=== PATIENT | female | born 1955 | race Caucasian/White ===

== ENCOUNTER 2020-09-18 08:58 | Outpatient (REF) | payer MEDICARE, SELFPAY ==
[2020-09-18 11:24] LABS: MANUAL DIFF FLAG NO
[2020-09-18 11:31] LABS: Basophils Absolute Auto 0.1 X10*3/uL (0.0-0.2); Basophils Percent Auto 0.9 % (0-2); Eosinophils Absolute Auto 0.1 X10*3/uL (0.0-0.4); Eosinophils Percent Auto 2.1 % (0-4); Hematocrit 43.4 % (37-47); Hemoglobin 13.7 g/dl (12.0-16.0); Imm Gran Abs Auto 0.02 X10*3/uL (0.00-0.03); Imm Gran Pct Auto 0.4 % (0.0-0.4); Lymphocytes Percent Auto 37.1 % (20-40); Mean Corpuscular HGB Conc 31.6 g/dl (31.0-35.0); Mean Corpuscular Volume 91.8 fL (80-98); Mean Platelet Volume 9.7 fL (9.4-12.3); Monocytes Absolute Auto 0.4 X10*3/uL (0.1-1.2); Neutrophils Absolute Auto 2.8 X10*3/uL (2.0-8.3); Neutrophils Percent Auto 52.5 % (45-73); Platelet Count 379 X10*3/uL (160-400); Red Blood Count 4.73 X10*6/uL (4.20-5.50); Red Cell Distribution Width 14.5 % (11.0-16.0); White Blood Count 5.3 X10*3/uL (4.8-10.8)
[2020-09-18 11:32] LABS: Glucose Urine UA NEG (NEG); Leukocyte Esterase Urine NEG (NEG); Nitrite Urine NEG (NEG); PH 6.5 (5.0-8.0); Urine Blood NEG (NEG); Urine Ketones NEG (NEG); Urine Protein NEG (NEG-TRACE)
[2020-09-18 11:34] LABS: Appearance Urine CLEAR; Color Urine YELLOW
[2020-09-18 12:10] LABS: Alanine Aminotransferase 20 U/L (0-31); Albumin Level 4.4 g/dL (3.5-5.0); Alkaline Phosphatase 68 U/L (39-117); Anion Gap 13 (12-20); Aspartate Amino Transferase 22 U/L (5-31); Bilirubin Total 0.4 mg/dL (0.0-1.0); Blood Urea Nitrogen 10 mg/dL (9-16); Calcium 8.9 mg/dL (8.4-10.2); Carbon Dioxide 30 mmol/L (22-29); Chloride 104 mmol/L (96-108); Cholesterol 214 mg/dL; Estimated Glomerular Filt Rate > 60; Glucose Fasting 91 mg/dL (60-99); HDL Cholesterol 56 mg/dL; LDL Cholesterol Calculated 140 mg/dl; Potassium 4.1 mmol/l (3.3-5.1); Sodium 143 mmol/L (135-145); Total Protein 7.5 g/dL (6.5-8.0); Triglycerides 90 mg/dL
[2020-09-18 12:31] LABS: Vitamin D 25-OH Total 32.9 ng/mL (>30)
== END 2020-09-18 08:59 | disposition home or self-care (01) ==
LOC: HO.HMGCLDS 08:58
PROVIDERS: PCP Internal Medicine; Visit Provider Internal Medicine
DX: Z00.00 Encounter for general adult medical examination without abnormal findings (principal)
CPT/HCPCS: 36415; 80053; 80061; 81003; 82306; 85025

== ENCOUNTER 2020-10-08 13:44 | Outpatient (REF) | payer MEDICARE, SELFPAY ==
--- NOTE | 2020-10-08 13:48 | MM_ITS ---
EXAMINATION: MM SCREENING DIGITAL BREAST TOMOSYNTHESIS, BILATERAL CLINICAL INFORMATION: Screening. Asymptomatic. The lifetime risk of breast cancer based on the Tyrer-Cuzick Model is 5%. COMPARISON: Mammography: 04/02/2019, 03/20/2018, 02/14/2017 TECHNIQUE: Digital breast tomosynthesis is performed in both the craniocaudal and mediolateral oblique views along with computer-aided detection (CAD). Synthesized 2D images are generated from the tomosynthesis. FINDINGS: There are scattered areas of fibroglandular density (ACR BI-RADS breast composition Category b). There are no significant masses, abnormal calcifications, or other abnormalities. Parenchymal pattern is similar to prior exams. There is no developing density. No significant changes. MM/MM tomosynthesis screening BI IMPRESSION: No mammographic evidence of malignancy. ASSESSMENT: BI-RADS 1: Negative RECOMMENDATION: Routine annual mammography screening. This patient's information was entered into a reminder system with a target due date for their next mammogram.
== END 2020-10-08 13:45 | disposition home or self-care (01) ==
LOC: HO.MAMMO 13:44
PROVIDERS: PCP Internal Medicine; Visit Provider Internal Medicine
DX: Z12.31 Encounter for screening mammogram for malignant neoplasm of breast (principal)
CPT/HCPCS: 77063; 77067

== ENCOUNTER 2021-02-13 09:06 | Outpatient (REF) | payer MEDICARE, SELFPAY ==
[2021-02-13 17:56] LABS: Cholesterol 216 mg/dL; HDL Cholesterol 52 mg/dL; LDL Cholesterol Calculated 135 mg/dl; Triglycerides 148 mg/dL
== END 2021-02-13 09:07 | disposition home or self-care (01) ==
LOC: HO.HMGCLDS 09:06
PROVIDERS: PCP Internal Medicine; Visit Provider Internal Medicine
DX: E78.00 Pure hypercholesterolemia, unspecified (principal)
CPT/HCPCS: 36415; 80061

== ENCOUNTER 2021-06-21 12:41 | Outpatient (REF) | payer MEDICARE, SELFPAY ==
--- NOTE | 2021-06-21 14:49 | MHC.AU.AHA ---
Adult Audiological Evaluation Date of Visit: 06/21/21 Tempering Kiln Tender Used: Not Applicable Reason for Appointment: Audiologic re-evaluation due to increasing difficulties understanding speech. Previous Hearing Test Results: 10/21/2018 [facility] Mild dropping to profound sensorineural hearing loss bilaterally Medical History: Medication List: Not available for review Hearing Instrument History- Right Ear: Die Designer Apprentice: Phonak Model: Bolero V 70-SP BTE Serial Number: [id number] Battery Size: 13 Repair Warranty: Dispensed By: [facility] Date of Fittin02/18/2016 Hearing Instrument History- Left Ear: Die Designer Apprentice: Phonak Model: Bolero V 70-SP BTE Serial Number: [id number] Battery Size: 13 Warranty: Dispensed By: [facility] Date of Fittin02/18/2016 Otoscopy: Right Ear: Unremarkable Left Ear: Unremarkable Tympanometry: Tympanometry not performed today as all previous test results have indicated normal middle ear function bilaterally Hearing Evaluation: Transducer(s) Used: Insert Earphones Method: Conventional Audiometry Stimuli Used: Pure Tones Right Ear: Description of Hearing: Mild dropping to profound sensorineural hearing loss. Right ear thresholds are slightly poorer than the left ear Left Ear: Description of Hearing: Mild dropping to profound sensorineural hearing loss Speech Recognition Threshold (SRT): Method Used: Monitored Live Voice Stimuli Used: Spondee Words Right Ear: 50 dB HL Left Ear: 40 dB HL Word Discrimination: Word Lists Used: NU-6 Right Ear: Live Monitored Speech - 68% at 85 dB HL Recorded Speech - 36% at 85 dB HL Left Ear: Live Monitored Speech - 76% at 80 dB HL Recorded Speech - 32% at 80 dB HL Most Comfortable Level (MCL): Right Ear: 85 dB HL Left Ear: 80 dB HL Comparison: Compared to the most recent evaluation: Hearing is stable. Interpretation of Results: Results indicate Diane's speech discrimination ability was much better using Live Monitored Speech and demonstrates clear and slower speech is very important for improved speech understanding. Recommendations: Audiological re-evaluation in one year. Will send a reminder card. Hearing aid maintenance performed today. Hearing aid(s) reprogrammed with updated test results. Took impression of the right ear without complication for a new earmold. Will schedule appointment when earmold is received. Diagnosis: Primary Diagnosis: H90.3 Bilateral Sensorineural Hearing Loss Services Performed: Comprehensive Audiological Evaluation (CPT 18939) Signature: Provider: MAZIN PalenciaA
== END 2021-06-21 12:42 | disposition home or self-care (01) ==
LOC: HO.SH 12:41
PROVIDERS: Visit Provider Internal Medicine
DX: H90.3 Sensorineural hearing loss, bilateral (principal)
CPT/HCPCS: 92557

== ENCOUNTER 2021-07-25 12:27 | Outpatient (REF) | payer SELFPAY ==
--- NOTE | 2021-07-25 14:43 | MHC.AU.HFU ---
Hearing Instrument Follow-Up- Binaural Date of Visit: 07/25/21 Right Ear: Business Associate: Phonak Model: Bolero V 70-SP BTE Serial Number: [id number] Repair Warranty: Battery Size: 13 Color: Mishel Red Tubing: Single bend with FOOD CONCESSION MANAGER #4 Type of Mold: Microsonic Skeleton Dispensed By: [facility] Date of Fittin02/18/2016 Left Ear: Business Associate: Phonak Model: Bolero V 70-SP BTE Serial Number: [id number] Repair Warranty: Battery Size: 13 Color: Mishel Red Tubing: Single Bend with FOOD CONCESSION MANAGER #4 Type of Mold: Microsonic Skeleton Dispensed By: [facility] Date of Fittin02/18/2016 Follow-Up Summary: Fit the new right earmold. Patient reports a snugger fit compared to the left mold, but seems comfortable while in office. Patient is interested in trying new Phonak aids and had several questions. Recommendations: Patient will e-mail if fit of earmold is a problem. She will also email when ready to try new aids. PLAN TO FIT WITH DEMO TRIAL NAYA (I know the UP model will over amplify but we do not have an SP model in office) WILL FIRST SET UP LEVEL 70 AND TRY FOR 1-2 WEEKS, THEN TRY LEVEL 90 BEFORE PATIENT DECIDES TO ORDER THE NAYA SP MODEL. Diagnosis Code(s): Primary Diagnosis: H90.3 Bilateral Sensorineural Hearing Loss Services Performed: Earmold (Quantity): 1 Signature: Provider: Colleen Wyatt, [facility]
== END 2021-07-25 12:28 | disposition home or self-care (01) ==
LOC: HO.HAP 12:27
PROVIDERS: Visit Provider Internal Medicine
DX: Z46.1 Encounter for fitting and adjustment of hearing aid (principal); H90.3 Sensorineural hearing loss, bilateral
CPT/HCPCS: V5264

== ENCOUNTER 2021-09-16 07:54 | Outpatient (REF) | payer MEDICARE, SELFPAY ==
[2021-09-16 11:24] LABS: MANUAL DIFF FLAG NO
[2021-09-16 11:42] LABS: Appearance Urine CLEAR; Color Urine STRAW; Glucose Urine UA NEG (NEG); Leukocyte Esterase Urine NEG (NEG); Nitrite Urine NEG (NEG); Urine Blood NEG (NEG); Urine Ketones NEG (NEG); Urine Protein NEG (NEG-TRACE)
[2021-09-16 11:43] LABS: Basophils Absolute Auto 0.1 X10*3/uL (0.0-0.2); Basophils Percent Auto 0.9 % (0-2); Eosinophils Absolute Auto 0.1 X10*3/uL (0.0-0.4); Eosinophils Percent Auto 1.6 % (0-4); Hematocrit 42.1 % (37.0-47.0); Hemoglobin 13.4 g/dl (12.0-16.0); Imm Gran Abs Auto 0.02 X10*3/uL (0.00-0.03); Imm Gran Pct Auto 0.4 % (0.0-0.4); Lymphocytes Absolute Auto 1.8 X10*3/uL (1.2-4.9); Lymphocytes Percent Auto 31.4 % (20-40); Mean Corpuscular HGB Conc 31.8 g/dl (31.0-35.0); Mean Corpuscular Hemoglobin 29.1 pg (27.0-33.0); Mean Corpuscular Volume 91.5 fL (80.0-98.0); Mean Platelet Volume 10.1 fL (9.4-12.3); Monocytes Absolute Auto 0.4 X10*3/uL (0.1-1.2); Monocytes Percent Auto 6.7 % (2-11); Neutrophils Absolute Auto 3.3 x10*3/uL (2.0-8.3); Platelet Count 372 X10*3/uL (160-400); Red Cell Distribution Width 13.7 % (11.0-16.0); White Blood Count 5.6 X10*3/uL (4.8-10.8)
[2021-09-16 12:06] LABS: Alanine Aminotransferase 21 U/L (0-31); Albumin Level 4.1 g/dL (3.5-5.0); Alkaline Phosphatase 71 U/L (39-117); Anion Gap 12 (12-20); Aspartate Amino Transferase 23 U/L (5-31); Bilirubin Total 0.3 mg/dL (0.0-1.0); Blood Urea Nitrogen 8 mg/dL (9-16); Calcium 8.8 mg/dL (8.4-10.2); Carbon Dioxide 28 mmol/L (22-29); Chloride 106 mmol/L (96-108); Cholesterol 211 mg/dL; Estimated Glomerular Filt Rate > 60; Glucose Fasting 96 mg/dL (60-99); HDL Cholesterol 51 mg/dL; LDL Cholesterol Calculated 141 mg/dl; Potassium 4.2 mmol/L (3.3-5.1); Sodium 142 mmol/L (135-145); Total Protein 7.1 g/dL (6.5-8.0); Triglycerides 99 mg/dL
== END 2021-09-16 07:55 | disposition home or self-care (01) ==
LOC: HO.HMGCLDS 07:54
PROVIDERS: PCP Internal Medicine; Visit Provider Internal Medicine
DX: E78.00 Pure hypercholesterolemia, unspecified (principal); J45.909 Unspecified asthma, uncomplicated; R53.83 Other fatigue
CPT/HCPCS: 36415; 80053; 80061; 81003; 85025

== ENCOUNTER 2021-10-09 14:06 | Outpatient (REF) | payer MEDICARE, SELFPAY ==
--- NOTE | ~2021-10-09 | MM_ITS ---
EXAMINATION: MM SCREENING DIGITAL BREAST TOMOSYNTHESIS, BILATERAL CLINICAL INFORMATION: Screening. Asymptomatic. The lifetime risk of breast cancer based on the Tyrer-Cuzick Model is 4%. COMPARISON: Mammography: 10/08/2020, 04/02/2019, 03/20/2018, 02/14/2017, 01/26/2016 TECHNIQUE: Digital breast tomosynthesis is performed in both the craniocaudal and mediolateral oblique views along with computer-aided detection (CAD). Synthesized 2D images are generated from the tomosynthesis. FINDINGS: There are scattered areas of fibroglandular density (ACR BI-RADS breast composition Category b). There are no significant masses, abnormal calcifications, or other abnormalities. Scattered bilateral parenchymal asymmetries are again noted with minor shifting fibroglandular densities from year to year. No developing density. No architectural abnormality. No significant changes. MM/MM tomosynthesis screening BI IMPRESSION: No mammographic evidence of malignancy. ASSESSMENT: BI-RADS 2: Benign RECOMMENDATION: Routine annual mammography screening. This patient's information was entered into a reminder system with a target due date for their next mammogram.
== END 2021-10-09 14:07 | disposition home or self-care (01) ==
LOC: HO.MAMMO 14:06
PROVIDERS: Visit Provider Internal Medicine
DX: Z12.31 Encounter for screening mammogram for malignant neoplasm of breast (principal)
CPT/HCPCS: 77063; 77067

== ENCOUNTER 2021-12-17 08:36 | Outpatient (REF) | payer MEDICARE, SELFPAY ==
--- NOTE | ~2021-12-17 | MM_ITS ---
EXAMINATION: BONE DENSITOMETRY CLINICAL INDICATION: Menopausal. COMPARISON: Baseline BD dated 10/18/2009. TECHNIQUE: Using a Launchpilots DXA System (software version: 13.1) manufactured by [employer], dual-energy x-ray absorptiometry was performed of the lumbar spine and left hip. The images are of good technical quality. Summary results are attached. FINDINGS: AP SPINE L1-L2 (excluding L3 and L4): The data of L1-L4 has been changed to exclude the L3 and L4 vertebral bodies, because mild degenerative changes at these levels may cause overestimation of lumbar spine density. Current: BMD 1.072 g/cm2, Z-score 1.3, T-score -0.8, normal, 7.7% decrease from baseline (<5% change is not significant). Baseline: BMD 1.162 g/cm2. LEFT FEMUR, NECK: Current: BMD 0.694 g/cm2, Z-score -0.6, T-score -2.5, osteoporosis. Baseline: BMD 0.859 g/cm2. LEFT FEMUR, TOTAL: Current: BMD 0.739 g/cm2, Z-score -0.4, T-score -2.1, osteopenia, 17.3% decrease from baseline (<5% change is not significant). Baseline: BMD 0.894 g/cm2. IDENTIFIED RISK FACTORS: Menopause, family history (parental hip fracture), unilateral oophorectomy. HISTORY OF FRACTURE: None listed. MEDICATIONS: Calcium supplements or multivitamin, vitamin D. MM/XR DEXA axial skeleton IMPRESSION: 1. DIAGNOSIS: Osteoporosis based on the lowest T-score value of -2.5 in the femoral neck applying World Health Organization criteria. 2. 10-YEAR FRACTURE RISK PREDICTION, FRAX: According to the guidelines, FRAX calculation should only be performed on patients in the osteopenia bone density category. Therefore, FRAX was not performed on this patient. 3. Treatment Recommendations: NOF guidelines recommend consideration for treatment in postmenopausal women and men age 50 and older presenting with the following: -A hip or vertebral (clinical or morphometric) fracture. -T-score less than or equal to -2.5 at the femoral neck or spine after appropriate evaluation to exclude secondary causes. -Low bone mass at the hip or spine and a 10-year fracture probability by FRAX of greater than or equal to 3% for hip fracture or greater than or equal to 20% for major osteoporotic fracture based on the [place] adapted WHO algorithm. 4. Other Recommendations: All treatment decisions require clinical judgment and consideration of individual patient factors, including patient preferences, comorbidities, previous drug use, risk factors not captured in the FRAX model (e.g. frailty, falls, vitamin D deficiency, increased bone turnover, interval significant decline in bone density) and possible under or overestimation of fracture risk by FRAX. Additional medical evaluation for secondary cause of low bone mineral density may be appropriate. FUTURE SCAN RECOMMENDATION: People with diagnosed cases of osteoporosis or at high risk for fracture should have regular bone mineral density tests. For patients eligible for Medicare, routine testing is allowed once every 2 years. The testing frequency can be increased to one year for patients who have rapidly progressing disease, those who are receiving or discontinuing medical therapy to restore bone mass, or have additional risk factors.
== END 2021-12-17 08:37 | disposition home or self-care (01) ==
LOC: HO.MAMMO 08:36
PROVIDERS: Visit Provider Internal Medicine
DX: Z13.820 Encounter for screening for osteoporosis (principal); Z78.0 Asymptomatic menopausal state; M81.0 Age-related osteoporosis without current pathological fracture; Z79.899 Other long term (current) drug therapy
CPT/HCPCS: 77080

== ENCOUNTER 2022-02-27 08:42 | Outpatient (REF) | payer MEDICARE, SELFPAY ==
[2022-02-27 11:32] LABS: Cholesterol 209 mg/dL; HDL Cholesterol 45 mg/dL; LDL Cholesterol Calculated 140 mg/dl; Triglycerides 122 mg/dL
== END 2022-02-27 08:43 | disposition home or self-care (01) ==
LOC: HO.HMGCLDS 08:42
PROVIDERS: Visit Provider Internal Medicine
DX: E78.00 Pure hypercholesterolemia, unspecified (principal)
CPT/HCPCS: 36415; 80061

== ENCOUNTER 2022-06-12 06:53 | Outpatient (REF) | payer MEDICARE, SELFPAY ==
[2022-06-12 11:39] LABS: Cholesterol 222 mg/dL; HDL Cholesterol 56 mg/dL; LDL Cholesterol Calculated 146 mg/dl; Triglycerides 101 mg/dL
== END 2022-06-12 06:54 | disposition home or self-care (01) ==
LOC: HO.HMGCLDS 06:53
PROVIDERS: PCP Internal Medicine; Visit Provider Internal Medicine
DX: E78.00 Pure hypercholesterolemia, unspecified (principal)
CPT/HCPCS: 36415; 80061

== ENCOUNTER 2022-06-25 15:19 | Outpatient (REF) | payer MEDICARE, SELFPAY ==
--- NOTE | 2022-07-01 07:48 | MHC.AU.AHA ---
Adult Audiological Evaluation Date of Visit: 06/25/22 Antique Jewelry Repairer Used: Not Applicable Reason for Appointment: Audiologic re-evaluation to determine possible change in hearing prior to obtaining new hearing aids. Diane has a long standing bilateral hearing loss which has progressed over time with decreased speech understanding ability. Previous Hearing Test Results: 06/21/2021 [facility] Mild dropping to profound sensorineural hearing loss with the right ear being poorer than the left ear. Speech understanding for recorded speech was 36% for the right ear and 32% for the left ear. Medical History: Allergies: Machipongo, Ceftin, Amoxicillin, Erythromycin Medication List: Oxybutynin Chloride, Betamethasone Dipropionate Lotion. As needed medications: Meclizine HCL, Tylenol Arthritis, Flonase and Claritin Hearing Instrument History- Right Ear: Boat Canvas Maker And Installer: Bostan Research Model: Kofax 70-SP Aerovance Serial Number: [id number] Battery Size: 13 Repair Warranty: Dispensed By: [facility] Date of Fittin02/18/2016 Hearing Instrument History- Left Ear: Boat Canvas Maker And Installer: Bostan Research Model: Kofax 70-SP Aerovance Serial Number: [id number] Battery Size: 13 Warranty: Dispensed By: [facility] Date of Fittin02/18/2016 Otoscopy: Right Ear: Unremarkable Left Ear: Unremarkable Tympanometry: Tympanometry performed due to: To assess integrity of the middle ear system Right Ear: Normal Middle Ear System (Type A) Left Ear: Normal Middle Ear System (Type A) Hearing Evaluation: Transducer(s) Used: Insert Earphones Method: Conventional Audiometry Stimuli Used: Pure Tones Right Ear: Description of Hearing: Mild dropping to profound sensorineural hearing loss Left Ear: Description of Hearing: Mild dropping to profound sensorineural hearing loss Word Discrimination: Method: Recorded Lists Word Lists Used: NU-6 Right Ear: 40% at 90 dB HL Left Ear: 56% at 80 dB HL Most Comfortable Level (MCL): Right Ear: 85 dB HL Left Ear: 80 dB HL Comparison: Compared to the most recent evaluation: Hearing is stable. Recommendations: Trial with new amplification is recommended. Hearing aid maintenance performed today. Diane will be set up with DEMO hearing aids and trial 2 different levels of technology to determine which is most beneficial for her prior to purchasing. Audiological re-evaluation in one year. Will send a reminder card Diagnosis: Primary Diagnosis: H90.3 Bilateral Sensorineural Hearing Loss Services Performed: Pure Tone- Air (CPT 58847) Tympanometry (CPT 48598) Signature: Provider: Colleen Wyatt, CCC-A
== END 2022-06-25 15:20 | disposition home or self-care (01) ==
LOC: HO.SH 15:19
PROVIDERS: Visit Provider Internal Medicine
DX: Z01.118 Encounter for examination of ears and hearing with other abnormal findings (principal); H90.3 Sensorineural hearing loss, bilateral
CPT/HCPCS: 92552; 92567

== ENCOUNTER 2022-07-08 13:05 | Outpatient (REF) | payer SELFPAY ==
--- NOTE | 2022-07-08 14:15 | MHC.AU.HAS ---
Hearing Aid Evaluation Date of Visit: 07/08/22 Historical Information: Description of Hearing: Mild precipitously dropping to profound sensorineural hearing loss bilaterally Current personal amplification information, if applicable: Binaural Phonak Bolero V 70-SP Purchased [place] [facility] [place] Summary: Due to increasing speech discrimination difficulties, patient wants to purchase new hearing aids. Discussed the levels of technology and models appropriate for her loss. Patient wants to try to stay with Phonak hearing aids. DEMO Gila P UP trialed 2 weeks ago did not properly fit her ears and she was not hearing well with them. Decided to try Audeo P with power receivers. Hearing Aid Prescription: Based on the individual?s shared listening needs, communication environments, dexterity, desire for connectivity, and personal preferences, the following prescription for amplification has been made: Right ear: Process Control Board Operator: Phonak Model: Audeo P 70-13T Battery Size: 13 Color: Sand Beige Senior Android Software Engineer: #0 P Tubing: Single bend with RENAL DIETITIAN #4 Type of Mold: Phonak Skeleton C-Shell Left ear: Left ear prescription to be same as Right Hearing Aid above: Process Control Board Operator: Phonak Model: Audeo P 70-13T Battery Size: 13 Color: Sand Beige Senior Android Software Engineer: #) P Tubing: Single Bend with RENAL DIETITIAN #4 Type of Mold: Phonak Skeleton C-SHell Plan of Care: Patient wishes to continue with current amplification Action Taken/Action Needed: Earmold Impressions Taken. Fitting to be scheduled when materials arrive Primary Diagnosis: H90.3 Bilateral Sensorineural Hearing Loss Signature:Provider: Erasmo Wyatt, CCC-A
== END 2022-07-08 13:06 | disposition home or self-care (01) ==
LOC: HO.HAP 13:05
PROVIDERS: Visit Provider Internal Medicine
DX: Z46.1 Encounter for fitting and adjustment of hearing aid (principal); H90.3 Sensorineural hearing loss, bilateral
CPT/HCPCS: 92590; 92591

== ENCOUNTER 2022-09-01 09:17 | Outpatient (REF) | payer SELFPAY | END 2022-09-01 09:18 | disposition home or self-care (01) | LOC: HO.HAP 09:17 | PROVIDERS: Visit Provider Internal Medicine | DX: Z46.1 Encounter for fitting and adjustment of hearing aid (principal); H90.3 Sensorineural hearing loss, bilateral | CPT/HCPCS: 92700; V5299 ==

== ENCOUNTER 2022-09-09 08:24 | Outpatient (REF) | payer MEDICARE, SELFPAY ==
[2022-09-09 11:41] LABS: Appearance Urine Clear; Color Urine Yellow; Glucose Urine UA Negative (Negative); Leukocyte Esterase Urine Negative (Negative); Nitrite Urine Negative (Negative); Urine Blood Negative (Negative); Urine Ketones Negative (Negative); Urine Protein Negative (Neg-Trace)
[2022-09-09 11:49] LABS: MANUAL DIFF FLAG NO
[2022-09-09 11:59] LABS: Basophils Percent Auto 0.8 % (0-2); Eosinophils Absolute Auto 0.1 X10*3/uL (0.0-0.4); Eosinophils Percent Auto 2.3 % (0-4); Hematocrit 41.8 % (37.0-47.0); Hemoglobin 13.1 g/dl (12.0-16.0); Imm Gran Abs Auto 0.01 X10*3/uL (0.00-0.03); Imm Gran Pct Auto 0.2 % (0.0-0.4); Lymphocytes Absolute Auto 1.7 X10*3/uL (1.2-4.9); Lymphocytes Percent Auto 35.7 % (20-40); Mean Corpuscular HGB Conc 31.3 g/dl (31.0-35.0); Mean Corpuscular Hemoglobin 28.5 pg (27.0-33.0); Mean Corpuscular Volume 91.1 fL (80.0-98.0); Mean Platelet Volume 9.6 fL (9.4-12.3); Monocytes Absolute Auto 0.4 X10*3/uL (0.1-1.2); Monocytes Percent Auto 8.6 % (2-11); Neutrophils Absolute Auto 2.5 x10*3/uL (2.0-8.3); Neutrophils Percent Auto 52.4 % (45-73); Platelet Count 315 X10*3/uL (160-400); Red Blood Count 4.59 X10*6/uL (4.20-5.50); Red Cell Distribution Width 14.1 % (11.0-16.0); White Blood Count 4.8 X10*3/uL (4.8-10.8)
[2022-09-09 12:37] LABS: Alanine Aminotransferase 21 U/L (0-31); Albumin Level 4.2 g/dL (3.5-5.0); Alkaline Phosphatase 66 U/L (39-117); Anion Gap 13 (12-20); Aspartate Amino Transferase 22 U/L (5-31); Bilirubin Total 0.2 mg/dL (0.0-1.0); Blood Urea Nitrogen 13 mg/dL (9-16); Carbon Dioxide 30 mmol/L (22-29); Chloride 104 mmol/L (96-108); Cholesterol 204 mg/dL; Estimated Glomerular Filt Rate > 60; Glucose Fasting 89 mg/dL (60-99); HDL Cholesterol 53 mg/dL; LDL Cholesterol Calculated 133 mg/dl; Potassium 4.4 mmol/L (3.3-5.1); Sodium 143 mmol/L (135-145); Total Protein 7.1 g/dL (6.5-8.0); Triglycerides 90 mg/dL
[2022-09-09 13:35] LABS: Vitamin D 25-OH Total 43.2 ng/mL (>30)
[2022-09-10 12:41] LABS: HCV Log PCR <1.18 NOT DETECTED Log IU/mL (NOT DETECTED); HepC Viral Load <15 NOT DETECTED IU/mL (NOT DETECTED)
== END 2022-09-09 08:25 | disposition home or self-care (01) ==
LOC: HO.HMGCLDS 08:24
PROVIDERS: PCP Internal Medicine; Visit Provider Internal Medicine
DX: Z00.00 Encounter for general adult medical examination without abnormal findings (principal)
CPT/HCPCS: 36415; 80053; 80061; 81003; 82306; 85025; 87522

== ENCOUNTER 2022-09-09 10:38 | Outpatient (REF) | payer MEDICARE, SELFPAY ==
--- NOTE | 2022-09-09 11:10 | MHC.AU.HFU ---
Hearing Instrument Follow-Up- Binaural Date of Visit: 09/09/22 Right Ear: Phonak Audeo P 70-13T Sand Beige SN #[id number] Repair Warranty: 10/20/2025 Loss and Damage Warranty: 10/20/2025 Service Plan: 09/01/2025 Battery Size: 13 Color: Sand Beige Residential Sales Manager: #0 P Type of Mold: Phonak Skeleton C-Shell Serial #[id number] Remake Warranty 10/21/2022 Type of Wax Guard: CeruStop Dispensed By: [facility] Date of Fittin09/01/2022 Left Ear: Phonak Audeo P70-13T Sand Beige SN #[id number] Repair Warranty: 10/19/2025 Loss and Damage Warranty: 10/19/2025 Service Plan: 09/01/2025 Battery Size: 13 Color: Sand Beige Residential Sales Manager: #1 P Type of Mold: Phonak Skeleton C-SHell #[id number] remake warranty 10/21/2022 Type of Wax Guard: CeruStop Dispensed By: [facility] Date of Fittin09/01/2022 Follow-Up Summary: Patient needed to schedule an earlier appointment as the left earmold is causing discomfort only when pushing the faceplate further into the canal. Once in, it does not bother her. Also she continues to have trouble with the /sh/ sound being harsh. Otoscopy shows no redness or areas of irritation for the left ear/canal. When watching patient insert earmold/aid, I advised her to set the aid in the canal by pushing the skeleton portion of the mold rather than the faceplate. Patient noticed no discomfort but she was afraid of how secure the mold is. With more practice she agrees the mold is staying in place. Used Audibility Fine Tuning recommendation and decreased 2000 and 3000 Hz 65 gain and 4000 Hz 50 gain by one step for both aids with patient noticing less harsh sound. She wants to try as set. Patient notes she is hearing more sounds with the new aids, but was hoping for increased speech clarity. Reviewed the significant decrease in speech discrimination and since in the 40-50% range, the aids are going to help with sound awareness, but not necessarily speech clarity. Has F/U for 10/06/22 Recommendations: Patient will call if problems persist. Diagnosis Code(s):Primary Diagnosis: H90.3 Bilateral Sensorineural Hearing Loss Signature:Provider: Cristiane Wyatt CCC-A
== END 2022-09-09 10:39 | disposition home or self-care (01) ==
LOC: HO.SH 10:38
PROVIDERS: Visit Provider Internal Medicine
DX: Z13.89 Encounter for screening for other disorder (principal)

== ENCOUNTER 2022-10-06 09:24 | Outpatient (REF) | payer SELFPAY | END 2022-10-06 09:25 | disposition home or self-care (01) | LOC: HO.HAP 09:24 | PROVIDERS: Visit Provider Internal Medicine | DX: Z46.1 Encounter for fitting and adjustment of hearing aid (principal); H90.3 Sensorineural hearing loss, bilateral | CPT/HCPCS: V5267 ==

== ENCOUNTER 2022-10-13 13:24 | Outpatient (REF) | payer MEDICARE, SELFPAY ==
--- NOTE | ~2022-10-13 | MM_ITS ---
EXAMINATION: MM SCREENING DIGITAL BREAST TOMOSYNTHESIS, BILATERAL CLINICAL INFORMATION: Screening. Asymptomatic. The lifetime risk of breast cancer based on the Tyrer-Cuzick Model is 4%. COMPARISON: Mammography: 10/09/2021, 10/08/2020, 04/02/2019 TECHNIQUE: Digital breast tomosynthesis is performed in both the craniocaudal and mediolateral oblique views along with computer-aided detection (CAD). Synthesized 2D images are generated from the tomosynthesis. FINDINGS: There are scattered areas of fibroglandular density (ACR BI-RADS breast composition Category b). Parenchymal pattern is similar to prior studies. There are scattered bilateral stable asymmetries. No developing density or architectural abnormality. No abnormal calcifications. The axilla and skin contours are unremarkable. No significant changes. MM/MM tomosynthesis screening BI IMPRESSION: No mammographic evidence of malignancy. ASSESSMENT: BI-RADS 2: Benign RECOMMENDATION: Routine annual mammography screening. This patient's information was entered into a reminder system with a target due date for their next mammogram.
== END 2022-10-13 13:25 | disposition home or self-care (01) ==
LOC: HO.MAMMO 13:24
PROVIDERS: PCP Internal Medicine; Visit Provider Internal Medicine
DX: Z12.31 Encounter for screening mammogram for malignant neoplasm of breast (principal)
CPT/HCPCS: 77063; 77067

== ENCOUNTER 2023-09-09 07:29 | Outpatient (REF) | payer MEDICARE, SELFPAY ==
[2023-09-09 11:36] LABS: MANUAL DIFF FLAG NO
[2023-09-09 11:39] LABS: Basophils Percent Auto 0.6 % (0-2); Eosinophils Absolute Auto 0.1 X10*3/uL (0.0-0.4); Eosinophils Percent Auto 2.1 % (0-4); Hematocrit 40.9 % (37.0-47.0); Hemoglobin 13.2 g/dl (12.0-16.0); Imm Gran Abs Auto 0.02 X10*3/uL (0.00-0.03); Imm Gran Pct Auto 0.4 % (0.0-0.4); Lymphocytes Absolute Auto 1.6 X10*3/uL (1.2-4.9); Lymphocytes Percent Auto 34.2 % (20-40); Mean Corpuscular HGB Conc 32.3 g/dl (31.0-35.0); Mean Corpuscular Hemoglobin 29.3 pg (27.0-33.0); Mean Corpuscular Volume 90.7 fL (80.0-98.0); Mean Platelet Volume 9.7 fL (9.4-12.3); Monocytes Absolute Auto 0.4 X10*3/uL (0.1-1.2); Monocytes Percent Auto 7.6 % (2-11); Neutrophils Absolute Auto 2.6 x10*3/uL (2.0-8.3); Neutrophils Percent Auto 55.1 % (45-73); Platelet Count 310 X10*3/uL (160-400); Red Blood Count 4.51 X10*6/uL (4.20-5.50); White Blood Count 4.7 X10*3/uL (4.8-10.8)
[2023-09-09 11:41] LABS: Appearance Urine Clear; Color Urine Yellow; Glucose Urine UA Negative (Negative); Leukocyte Esterase Urine Negative (Negative); Nitrite Urine Negative (Negative); Specific Gravity - Urine 1.015 (1.005-1.025); Urine Blood Negative (Negative); Urine Ketones Negative (Negative); Urine Protein Negative (Neg-Trace)
[2023-09-09 12:09] LABS: Alanine Aminotransferase 19 U/L (0-31); Alkaline Phosphatase 63 U/L (39-117); Anion Gap 11 (12-20); Aspartate Amino Transferase 22 U/L (5-31); Bilirubin Total 0.4 mg/dL (0.0-1.0); Blood Urea Nitrogen 10 mg/dL (9-16); Calcium 9.3 mg/dL (8.4-10.2); Carbon Dioxide 28 mmol/L (22-29); Chloride 107 mmol/L (96-108); Cholesterol 205 mg/dL (<200); Estimated Glomerular Filt Rate > 60; Glucose Fasting 92 mg/dL (60-99); HDL Cholesterol 50 mg/dL (>40); LDL Cholesterol Calculated 135 mg/dL (<100); Potassium 3.9 mmol/L (3.3-5.1); Sodium 142 mmol/L (135-145); Total Protein 7.2 g/dL (6.5-8.0); Triglycerides 102 mg/dL (<150)
[2023-09-09 12:12] LABS: Vitamin D 25-OH Total 56.8 ng/mL (>30)
== END 2023-09-09 07:30 | disposition home or self-care (01) ==
LOC: HO.HMGCLDS 07:29
PROVIDERS: PCP Internal Medicine; Visit Provider Internal Medicine
DX: Z00.00 Encounter for general adult medical examination without abnormal findings (principal); I10 Essential (primary) hypertension; E78.00 Pure hypercholesterolemia, unspecified; M85.80 Other specified disorders of bone density and structure, unspecified site
CPT/HCPCS: 36415; 80053; 80061; 81003; 82306; 85025

== ENCOUNTER 2023-10-15 14:00 | Outpatient (REF) | payer MEDICARE, SELFPAY ==
--- NOTE | ~2023-10-15 | MM_ITS ---
EXAMINATION: MM SCREENING DIGITAL BREAST TOMOSYNTHESIS, BILATERAL CLINICAL INFORMATION: Screening. Asymptomatic. COMPARISON: Mammography: 10/13/2022, 10/09/2021, 10/08/2020, 04/02/2019 TECHNIQUE: Digital breast tomosynthesis is performed in both the craniocaudal and mediolateral oblique views along with computer-aided detection (CAD). Synthesized 2D images are generated from the tomosynthesis. FINDINGS: There are scattered areas of fibroglandular density (ACR BI-RADS breast composition Category b). There are rare scattered benign type calcifications. There are no suspicious masses, suspicious grouped calcifications, or areas of architectural distortion in either breast. The parenchymal pattern is stable from prior exams. No skin or axillary abnormalities. MM/MM tomosynthesis screening BI IMPRESSION: No mammographic evidence of malignancy. ASSESSMENT: BI-RADS BI-RADS 2 - Benign Findings RECOMMENDATION: Routine annual mammography screening. 1 year F/U This examination should not preclude the clinical evaluation of a suspicious palpable abnormality. This patient's information was entered into a reminder system with a target due date for their next mammogram.
== END 2023-10-15 14:01 | disposition home or self-care (01) ==
LOC: HO.MAMMO 14:00
PROVIDERS: PCP Internal Medicine; Visit Provider Internal Medicine
DX: Z12.31 Encounter for screening mammogram for malignant neoplasm of breast (principal)
CPT/HCPCS: 77063; 77067

== ENCOUNTER → 2023-10-15 14:15 | Outpatient (BNV) | payer MEDICARE, SELFPAY | PROVIDERS: PCP Internal Medicine; Visit Provider Radiology Diagnostic Radiology | DX: Z12.31 Encounter for screening mammogram for malignant neoplasm of breast (principal) | CPT/HCPCS: 77063; 77067 ==

== ENCOUNTER 2023-11-27 13:42 | Outpatient (REF) | payer MEDICARE, SELFPAY ==
--- NOTE | 2023-11-30 09:21 | MHC.AU.HA3 ---
Hearing Instrument Follow-Up- Binaural Date of Visit: 11/27/23 Right Ear: Adams, Model, Color, Serial Number: Wicho Sharma P 70-13T SN: [id number] Color: Sand Beige Construction Code Administrator Repair Warranty: 10/20/2025 Construction Code Administrator Loss and Damage Warranty: 10/20/2025 [facility] Service Plan: 09/01/2025 Battery Size: 13 Heat Treating Operator/Slim Tube: 0P Earmold/Dome/CShell/SlimTip:Phonak Skeleton C-Shell SN: [id number] Nabil: 10/21/2022 Type of Wax Guard: CeruStop Dispensed By: [facility] Date of Fittin09/01/2022 Left Ear: Adams, Model, Color, Serial Number: Wicho Sharma P70-13T SN: [id number] Color: Sand Beige Construction Code Administrator Repair Warranty: 10/19/2025 Construction Code Administrator Loss and Damage Warranty: 10/19/2025 [facility] Service Plan: 09/01/2025 Battery Size: 13 Heat Treating Operator/Slim Tube: 1P Earmold/Dome/CShell/SlimTip: Phonak Skeleton C-Shell SN: [id number] Nabil: 10/21/2022 Type of Wax Guard: CeruStop Dispensed By: [facility] Date of Fittin09/01/2022 Follow-Up Summary: Diane returned for routine hearing aid maintenance following updated hearing test. Cleaned hearing aids and ear molds. Replaced wax guards, vacuumed microphones, ran through dehumidifier. Increased noise management settings for ajwujl-[id number] and comfort-in noise programs as Diane reported increasing difficulty in background noise. Also discussed realistic expectations of hearing aids and possibility of CI evaluation in the future given poor speech discrimination. Diane inquired about extending the batch and furnace operator warranty. Advised Phonak will extend for one year. Will obtain quote for extension from [employer] when it is closer to end of current warranty. Also explained the difference between the batch and furnace operator warranty and the [facility] Service Agreement. Diane donated her old Phonak Gila MicroP BTE hearing aids. Recommendations: Hearing instrument follow-up or maintenance as needed. Please contact our clinic with any questions or concerns. Diagnosis Code(s): Primary Diagnosis: H90.3 Bilateral Sensorineural Hearing Loss Signature: Provider: Cristiane Roy, [facility]
== END 2023-11-27 13:43 | disposition home or self-care (01) ==
LOC: HO.SH 13:42
PROVIDERS: Visit Provider Internal Medicine
DX: Z01.118 Encounter for examination of ears and hearing with other abnormal findings (principal); H90.3 Sensorineural hearing loss, bilateral
CPT/HCPCS: 92557

== ENCOUNTER 2023-12-24 13:28 | Outpatient (REF) | payer MEDICARE, SELFPAY ==
--- NOTE | ~2023-12-24 | MM_ITS ---
EXAMINATION: BONE DENSITOMETRY CLINICAL INDICATION: Osteoporosis. COMPARISON: Previous BD dated 12/17/2021 and baseline BD dated 10/18/2009. TECHNIQUE: Using a ZAINA PHARMA DXA System (software version: 13.1) manufactured by [employer], dual-energy x-ray absorptiometry was performed of the lumbar spine and left hip. The images are of good technical quality. Summary results are attached. FINDINGS: LEFT FEMUR, NECK: Current: BMD 0.601 g/cm2, Z-score -1.1, T-score -3.1, osteoporosis. Prior: BMD 0.694 g/cm2. Baseline: BMD 0.859 g/cm2. LEFT FEMUR, TOTAL: Current: BMD 0.659 g/cm2, Z-score -1.0, T-score -2.8, osteoporosis, 10.8% decrease from previous, 26.3% decrease from baseline (<5% change is not significant). Prior: BMD 0.739 g/cm2. Baseline: BMD 0.894 g/cm2. AP SPINE L1-L4: Current: BMD 1.212 g/cm2, Z-score 2.4, T-score 0.3, normal, 1.8% increase from previous, 0.1% increase from baseline (<5% change is not significant). Prior: BMD 1.191 g/cm2. Baseline: BMD 1.211 g/cm2. IDENTIFIED RISK FACTORS: Menopause, family history (parent hip fracture), right oophorectomy. HISTORY OF FRACTURE: None listed. MEDICATIONS: Calcium or multivitamin. Vitamin D. MM/XR DEXA axial skeleton IMPRESSION: 1. DIAGNOSIS: Osteoporosis based on the lowest T-score value of -3.1 in the femoral neck applying World Health Organization criteria. 2. 10-YEAR FRACTURE RISK PREDICTION, FRAX: According to the guidelines, FRAX calculation should only be performed on patients in the osteopenia bone density category. Therefore, FRAX was not performed on this patient. 3. Treatment Recommendations: NOF guidelines recommend consideration for treatment in postmenopausal women and men age 50 and older presenting with the following: -A hip or vertebral (clinical or morphometric) fracture. -T-score less than or equal to -2.5 at the femoral neck or spine after appropriate evaluation to exclude secondary causes. -Low bone mass at the hip or spine and a 10-year fracture probability by FRAX of greater than or equal to 3% for hip fracture or greater than or equal to 20% for major osteoporotic fracture based on the [place] adapted WHO algorithm. 4. Other Recommendations: All treatment decisions require clinical judgment and consideration of individual patient factors, including patient preferences, comorbidities, previous drug use, risk factors not captured in the FRAX model (e.g. frailty, falls, vitamin D deficiency, increased bone turnover, interval significant decline in bone density) and possible under or overestimation of fracture risk by FRAX. Additional medical evaluation for secondary cause of low bone mineral density may be appropriate. FUTURE SCAN RECOMMENDATION: People with diagnosed cases of osteoporosis or at high risk for fracture should have regular bone mineral density tests. For patients eligible for Medicare, routine testing is allowed once every 2 years. The testing frequency can be increased to one year for patients who have rapidly progressing disease, those who are receiving or discontinuing medical therapy to restore bone mass, or have additional risk factors.
== END 2023-12-24 13:29 | disposition home or self-care (01) ==
LOC: HO.MAMMO 13:28
PROVIDERS: PCP Internal Medicine; Visit Provider Internal Medicine
DX: Z13.820 Encounter for screening for osteoporosis (principal); Z78.0 Asymptomatic menopausal state
CPT/HCPCS: 77080

== ENCOUNTER 2024-08-17 07:58 | Outpatient (REF) | payer MEDICARE, SELFPAY ==
[2024-08-17 09:56] LABS: MANUAL DIFF FLAG NO
[2024-08-17 10:07] LABS: Basophils Absolute Auto 0.1 X10*3/uL (0.0-0.2); Eosinophils Absolute Auto 0.1 X10*3/uL (0.0-0.4); Eosinophils Percent Auto 1.6 % (0-4); Hematocrit 41.9 % (37.0-47.0); Hemoglobin 13.5 g/dl (12.0-16.0); Imm Gran Abs Auto 0.02 X10*3/uL (0.00-0.03); Imm Gran Pct Auto 0.4 % (0.0-0.4); Lymphocytes Absolute Auto 1.7 X10*3/uL (1.2-4.9); Lymphocytes Percent Auto 34.2 % (20-40); Mean Corpuscular HGB Conc 32.2 g/dl (31.0-35.0); Mean Corpuscular Hemoglobin 29.3 pg (27.0-33.0); Mean Corpuscular Volume 90.9 fL (80.0-98.0); Mean Platelet Volume 9.3 fL (9.4-12.3); Monocytes Absolute Auto 0.5 X10*3/uL (0.1-1.2); Monocytes Percent Auto 10.1 % (2-11); Neutrophils Absolute Auto 2.6 x10*3/uL (2.0-8.3); Neutrophils Percent Auto 52.7 % (45-73); Platelet Count 343 X10*3/uL (160-400); Red Blood Count 4.61 X10*6/uL (4.20-5.50); Red Cell Distribution Width 14.2 % (11.0-16.0)
[2024-08-17 10:36] LABS: Alanine Aminotransferase 25 U/L (0-31); Albumin Level 4.3 g/dL (3.5-5.0); Alkaline Phosphatase 60 U/L (39-117); Anion Gap 11 (12-20); Aspartate Amino Transferase 24 U/L (5-31); Bilirubin Total 0.3 mg/dL (0.0-1.0); Blood Urea Nitrogen 10 mg/dL (9-16); Calcium 8.9 mg/dL (8.4-10.2); Carbon Dioxide 28 mmol/L (22-29); Chloride 106 mmol/L (96-108); Cholesterol 222 mg/dL (<200); Estimated Glomerular Filt Rate > 60; Glucose Fasting 90 mg/dL (60-99); HDL Cholesterol 57 mg/dL (>40); LDL Cholesterol Calculated 138 mg/dL (<100); Potassium 3.7 mmol/L (3.3-5.1); Sodium 141 mmol/L (135-145); Total Protein 7.3 g/dL (6.5-8.0); Triglycerides 136 mg/dL (<150)
[2024-08-17 10:38] LABS: Vitamin D 25-OH Total 59.8 ng/mL (>30)
== END 2024-08-17 07:59 | disposition home or self-care (01) ==
LOC: HO.HMGCLDS 07:58
PROVIDERS: PCP Internal Medicine; Visit Provider Internal Medicine
DX: E78.00 Pure hypercholesterolemia, unspecified (principal); M81.0 Age-related osteoporosis without current pathological fracture
CPT/HCPCS: 36415; 80053; 80061; 82306; 85025

== ENCOUNTER 2024-10-17 13:39 | Outpatient (REF) | payer MEDICARE, SELFPAY ==
--- NOTE | ~2024-10-17 | MM_ITS ---
EXAMINATION: MM SCREENING DIGITAL BREAST TOMOSYNTHESIS, BILATERAL CLINICAL INFORMATION: Screening. Asymptomatic. COMPARISON: Mammography: Comparison is made with available priors TECHNIQUE: Digital breast mammography with tomosynthesis is performed in both the craniocaudal and mediolateral oblique views along with computer-aided detection (CAD). FINDINGS: The breasts are heterogeneously dense, which may obscure small masses (ACR BI-RADS breast composition Category c). There are no significant masses, abnormal calcifications, or other abnormalities. MM/MM tomosynthesis screening BI IMPRESSION: No mammographic evidence of malignancy. ASSESSMENT: BI-RADS BI-RADS 1 - Negative RECOMMENDATION: Routine annual mammography screening. 1 year F/U This examination should not preclude the clinical evaluation of a suspicious palpable abnormality. This patient's information was entered into a reminder system with a target due date for their next mammogram. Electronically signed by: Bonnie Puckett DO 10/21/2024 05:24 PM CIARRA
== END 2024-10-17 13:40 | disposition home or self-care (01) ==
LOC: HO.MAMMO 13:39
PROVIDERS: PCP Internal Medicine; Visit Provider Internal Medicine
DX: Z12.31 Encounter for screening mammogram for malignant neoplasm of breast (principal)
CPT/HCPCS: 77063; 77067

== ENCOUNTER → 2024-10-17 14:00 | Outpatient (BNV) | payer MEDICARE, SELFPAY | PROVIDERS: PCP Internal Medicine; Visit Provider Internal Medicine | DX: Z12.31 Encounter for screening mammogram for malignant neoplasm of breast (principal) | CPT/HCPCS: 77063; 77067 ==

== ENCOUNTER 2024-11-04 08:48 | Outpatient (REF) | payer MEDICARE, SELFPAY ==
[2024-11-04 10:03] LABS: Appearance Urine Clear; Color Urine Yellow; Glucose Urine UA Negative (Negative); Leukocyte Esterase Urine Negative (Negative); Nitrite Urine Negative (Negative); Urine Blood Negative (Negative); Urine Ketones Negative (Negative); Urine Protein Negative (Neg-Trace)
[2024-11-04 10:47] LABS: Cholesterol 198 mg/dL (<200); HDL Cholesterol 48 mg/dL (>40); LDL Cholesterol Calculated 128 mg/dL (<100); Triglycerides 113 mg/dL (<150)
== END 2024-11-04 08:49 | disposition home or self-care (01) ==
LOC: HO.HMGCLDS 08:48
PROVIDERS: PCP Internal Medicine; Visit Provider Internal Medicine
DX: E78.00 Pure hypercholesterolemia, unspecified (principal); M81.0 Age-related osteoporosis without current pathological fracture
CPT/HCPCS: 36415; 80061; 81003; 87086

== ENCOUNTER 2024-12-01 13:33 | Outpatient (REF) | payer MEDICARE, SELFPAY ==
--- NOTE | 2024-12-06 10:36 | MHC.AU.HA3 ---
Hearing Instrument Follow-Up- Binaural Date of Visit: 12/01/24 Right Ear: Adams, Model, Color, Serial Number: Wicho Sharma [id number] SN: [id number] Color: Sand Beige Care Management Associate Repair Warranty: 10/20/2025 Care Management Associate Loss and Damage Warranty: 10/20/2025 [facility] Service Plan: 09/01/2025 Battery Size: 13 Suction Roller/Slim Tube: 0P Earmold/Dome/CShell/SlimTip:Phonak Skeleton C-Shell SN: [id number] Nabil: 10/21/2022 Type of Wax Guard: CeruStop Dispensed By: [facility] Date of Fittin09/01/2022 Left Ear: Adams, Model, Color, Serial Number: Wicho Sharma [id number] SN: [id number] Color: Sand Beige Care Management Associate Repair Warranty: 10/19/2025 Care Management Associate Loss and Damage Warranty: 10/19/2025 [facility] Service Plan: 09/01/2025 Battery Size: 13 Suction Roller/Slim Tube: 1P Earmold/Dome/CShell/SlimTip: Phonak Skeleton C-Shell SN: [id number] Nabil: 10/21/2022 Type of Wax Guard: CeruStop Dispensed By: [facility] Date of Fittin09/01/2022 Follow-Up Summary: Updated hearing test (see audio). No programming changes, hearing thresholds are stable. Cleaned both HAs/EMs. Changed wax guards, left EM missing gasket to hold in wax guard. Vacuumed mics, ran through dehumidifier. Listening check demonstrated HAs amplifying clearly. Diane opted to purchase new left EM, exact duplicate. Quoted $185.00. Called [employer], reordered, Conf #: [id number]. Discussed end of Service Agreement and commercial property manager warranty, planning to schedule appointment in August for HAs to be sent to [employer] for last in-warranty clean and check and old HAs to be reprogrammed to use in meantime. Recommendations: Patient will be contacted when materials have arrived. Diagnosis Code(s): Primary Diagnosis: H90.3 Bilateral Sensorineural Hearing Loss Signature: Provider: Cristiane Roy, [facility]
== END 2024-12-01 13:34 | disposition home or self-care (01) ==
LOC: HO.SH 13:33
PROVIDERS: Visit Provider Internal Medicine
DX: Z01.118 Encounter for examination of ears and hearing with other abnormal findings (principal); H90.3 Sensorineural hearing loss, bilateral
CPT/HCPCS: 92552; 92556

== ENCOUNTER 2025-01-05 14:30 | Outpatient (REF) | payer SELFPAY ==
--- OUTSIDE RECORDS SUMMARY | 2025-01-05 17:43 | XMS_ITS ---
Author Organization [facility] Address [address] [place] [address] Care Team Providers Care Glost Tile Sorter Name Role Phone Luis Roth MD Primary Care Provider Patrice Escobar [phone] REASON FOR VISIT screening colonoscopy MEDICATIONS Medication SIG (Take, Route, Frequency, Duration) Notes [...] Active Encounters Encounter Location Date Provider Diagnosis [facility] [address] [place] [address] 12/27/2024 Patrice Casas PLAN OF TREATMENT Next Appt Details Provider Name:Patrice Casas , 05/03/2025 01:20:00 PM, [address], [address], [place], [address],
--- OUTSIDE RECORDS SUMMARY | 2025-01-05 17:43 | XMS_ITS | Patient Health Record ---
Author Organization [facility] Address [address] [place] [address] Care Team Providers Care Director Distribution Name Role Phone Luis Roth MD Primary Care Provider Patrice Escobar Unavailable [phone] ALLERGIES Allergen (clinical drug ingredient) Drug/Non Drug Allergy documented on EMR Reaction Allergy Type Onset Date Status erythromycin Erythromycin Unknown Drug Allergy A ctive Ceftin Unknown Drug Allergy Active amoxicillin Amoxicillin Unknown Drug Allergy Act raz Substance with sulfonamide structure and antibacterial mechanism of action (substance) sulpha (uncoded) Unknown Allergy Active REASON FOR REFERRAL No Information MEDICATIONS Medication SIG (Take, Route, Frequency, Duration) Notes Start Date End Date Status oxyBUTYnin Chloride 5 MG 1 tablet Orally Twice a day for 30 day(s) Active Calcium 500 MG 1 tablet with meals [...] neede d Orally Once a day Active IMMUNIZATIONS Vaccine Route Administration Date Status Comme nts Influenza Unknown 08/19/2019 Administered SOCIAL HISTORY Tobacco Use: Social History Observation Description Date Details (start date - stop date) Never Smoker NA - NA Sex Assigned At : Social History Observation Description Sex Assigned At Unknown Tobacco Use/Smoking Question Answer Notes Patient is a nonsmoker Alcohol Screen Question Answer Notes Did you have a drink containing alcohol in the p ast year? No Points 0 Interpretation Negative PROBLEMS Problem Type ICD Code Onset Dates Problem Status W/U Status Risk SNOMED Code Notes Problem Encounter for screening for malignant neoplasm of colon (Z12.11) Active confirmed 118251552 Problem Preprocedural examination (Z01.818) Active confirmed [id number] Encounters Encounter Location Date Provider Diagnosis [facility] [address] [place] [address] 12/27/2024 Patrice Casas [facility] [address] [place] [address] 12/27/2024 Patrice Casas PLAN OF TREATMENT Future Test Test Name Order Date COLONOSCOPY 08/19/2019 Next Appt Details Provider Name:Patrice Casas , 05/03/2025 01:20:00 PM, [address], [address], [place], [address], Insurance Providers Payer Name Payer Address Payer Phone Subscriber Number Group Number Insured Name Patient Relationship to Insured Coverage Start Date Coverage End Date [facility] [address] [place] [phone] [id number] MICHELLE GARSIA Self - patient is the insured 0 MEDICAL (GENERAL) HISTORY Medical History History ICD Code Endometriosis Denies [place],DM,CVA,Lung disease,renal dise ase Neg. colonoscopy in 12/2006 Overactive bladder Surgical History Surgery Date(Month/Year) Endometriosis surgery with removal of on e Fallopian tube and ovary Carpal tunnel release bilaterally Right foot surgery
--- OUTSIDE RECORDS SUMMARY | 2025-01-05 17:44 | XMS_ITS ---
Author Organization [facility] Address [address] [place] [address] Care Team Providers Care Log Scaler Name Role Phone Luis Roth MD Primary Care Provider UnavailPatrice Whitfield [phone] REASON FOR VISIT r/s todays appt Encounters Encounter Location Date Provider Diagnosis [facility] [address] [place] [address] [address] [place] [address] 12/27/2024 Patrice Casas PLAN OF TREATMENT Next Appt Details Provider Name:Patrice Casas , 05/03/2025 01:20:00 PM, [address] [place] [address], [address], [place], [address],
== END 2025-01-05 14:31 | disposition home or self-care (01) ==
LOC: HO.HAP 14:30
PROVIDERS: Visit Provider Internal Medicine
DX: Z46.1 Encounter for fitting and adjustment of hearing aid (principal); H90.3 Sensorineural hearing loss, bilateral
CPT/HCPCS: 92700; V5264

== ENCOUNTER 2025-03-10 10:51 | Outpatient (AMB) | payer MEDICARE, SELFPAY ==
--- NOTE | 2025-03-10 10:45 | MHC.PC.OV ---
Vital Signs 03/10/25 10:46 Height 5 ft 2 in Weight 118 lb BMI 21.6 BP 120/76 Blood Pressure Location Rt brachial Position Sitting Pulse 85 Pulse Source Pulse Oximeter Temp 97.2 F Temp Source Axillary Pulse Oximetry (%) 96 Oxygen Delivery Method Room Air Intake Visit Reasons: Routine - see comments Car Storer Required: No Accompanied by: Self / Same As Patient Allergies amoxicillin [AMOXICILLIN] Allergy (Unknown, Verified 03/10/25 11:15) ITCHY cefuroxime [From CEFTIN] Allergy (Unknown, Verified 03/10/25 11:15) DIARRHEA erythromycin base [ERYTHROMYCIN BASE] Allergy (Unknown, Verified 03/10/25 11:15) UNKNOWN Sulfa (Sulfonamide Antibiotics) [SULFA (SULFONAMIDE ANTIBIOTICS)] Allergy (Unknown, Verified 03/10/25 11:15) REDNESS Tobacco use date assessed: 03/10/25 Fall risk assessment: No Falls in past year Last assessed Fall Risk: 03/10/25 Dental Screening Dental Screen Date: 03/10/25 Did you have a dental visit in the last 12 months?: Yes Did you have a dental problem in the last 6 months where you did not have access to dental care?: No HPI HPI Comments History of Present Illness Details 69 year old female with a past medical history of hyperlipidemia, back pain, OAB, h/o colonic polyps presenting for follow up. She was seen in Oct by pcp OAB: Follows with urology. Taken off oxybutynin due to age >70. Since going off oxybutynin has had increase in allergic rhinitis. Taking claritin, astepro, flonase all without sustained effect. Sister taking montelukast she would like to add/trial. She declines allergy shots Colonoscopy 2019 Mammo 10/2024 ROS see HPI PHYSICAL EXAM: GENERAL: Alert and oriented x 3. NAD EYES: EOMI. Anicteric. HENT: Moist mucous membranes. No scleral icterus. No cervical lymphadenopathy. LUNGS: Clear to auscultation bilaterally. CARDIOVASCULAR: Regular rate and rhythm. No murmur. No JVD. ABDOMEN: Soft, non-tender +bs EXTREMITIES: No edema. Non-tender. SKIN: No rashes or lesions. Warm. NEUROLOGIC: No focal neurological deficits. CN II-XII grossly intact PSYCHIATRIC: Cooperative. Appropriate mood and affect [facility] Surgical History History of colonoscopy (~12/05/19) Family History Mother No problems noted. Father No problems noted. Social History Housing: House Patient Tobacco Use Status: Never used Tobacco e-Cigarette/Vaping Use: Never Used service: No Current occupational status: retired Cognitive needs: No Hearing needs: Yes (bilateral ) Vision needs: Yes (rx glasses) Questionnaire PHQ-9 Over the last 2 weeks, how often have you been bothered by any of the following problems? 1. Little interest or pleasure in doing things: not at all 2. Feeling down, depressed, or hopeless: not at all 3. Trouble falling or staying asleep, or sleeping too much: not at all 4. Feeling tired or having little energy: not at all 5. Poor appetite or overeating: not at all 6. Feeling bad about yourself - or that you are a failure or have let yourself or your family down: not at all 7. Trouble concentrating on things, such as reading the newspaper or watching television: not at all 8. Moving or speaking so slowly that other people could have noticed. Or the opposite - being so fidgety or restless that you have been moving around a lot more than usual: not at all 9. Thoughts that you would be better off or of hurting yourself in some way: not at all Total score: 0 Depression Screening Interpretation: Negative Depression Screening Done: Yes 38530 - PHQ-9 Billing: Yes Source: Developed by Drs. Patrice Woodruff, Alvina Forte, Vik Meeks and colleagues, with an educational tiff from [employer]. Thrive Questionnaire Date Thrive assessed: 03/10/25 I am a: Patient Within the past 12 months, did the food you bought not last and you didn't have the money to get more?: Never true Within the past 12 months, did you worry whether your food would run out before you got money to buy more?: Never true Do you have trouble paying for medicines?: No Do you have trouble getting transportation to medical appointments?: No Do you have trouble paying your heating and electricity bill?: No Do you have trouble taking care of your child, family member or friend?: No Do you have trouble with day-to-day activities such as bathing, preparing meals, shopping, managing finances, etc.?: No Are you currently unemployed and looking for a job?: No Are you interested in more education?: No THRIVE Score: 0 AUDIT C Alcohol Use Questionnaire (AUDIT-C) 1. How often do you have a drink containing alcohol?: Never 3. How often do you have six or more drinks on one occasion?: Never Total Score: 0 PERFECTO-7 AMB Questionnaire PERFECTO-7 Date PERFECTO - 7 assessed: 03/10/25 Feeling nervous, anxious, or on edge: 0 = Not at all Not being able to stop or control worryin = Not at all Worrying too much about different things: 0 = Not at all Trouble relaxin = Not at all Being so restless that it is hard to sit still: 0 = Not at all Becoming easily annoyed or irritable: 0 = Not at all Feeling afraid as if something awful might happen: 0 = Not at all Total PERFECTO-7 score (0-4 normal; 5-9 mild; 10-14 moderate; 15-21 severe): 0 Source: Developed by Drs. Patrice Woodruff, Alvina Forte, Vik Meeks and colleagues, with an educational tiff from [employer]. Physical exam (Primary Care) Vital Signs: Last Vital Signs Temp 97.2 F 03/10/25 10:46 Pulse 85 03/10/25 10:46 BP 120/76 03/10/25 10:46 Pulse Ox 96 03/10/25 10:46 Oxygen Delivery Method Room Air 03/10/25 10:46 BMI result Body Mass Index 21.6 Tobacco/Smoking Status: Tobacco use Status Tobacco use date assessed 03/10/25 03/10/25 10:48 Patient Tobacco Use Status Never used Tobacco 03/10/25 10:48 e-Cigarette/Vaping Use Never Used 03/10/25 10:48 PHQ-9: PHQ-9 Score PHQ-9: Total score 0 03/10/25 11:49 Depression Screening Interpretation: Negative Thrive Assessment: Date of Thrive Assessment Date Thrive assessed 03/10/25 03/10/25 10:48 Coding Level of Care Code New Pt Level 4 (44218) Diagnoses Allergic rhinitis, unspecified seasonality, unspecified trigger J30.9 Allergic rhinitis trigger: unspecified Allergic rhinitis seasonality: unspecified OAB (overactive bladder) N32.81 Hyperlipidemia, unspecified hyperlipidemia type E78.5 Hyperlipidemia type: unspecified History of colon polyps Z86.0100 Additional Codes PHQ-9 - 94445 - PHQ-9 Billing: Yes ([id number]) Assessment & Plan Assessment & Plan (1) Allergic rhinitis: Code(s): J30.9 - Allergic rhinitis, unspecified Category: Medical Qualifiers: Allergic rhinitis trigger: unspecified Allergic rhinitis seasonality: unspecified Qualified Code(s): J30.9 - Allergic rhinitis, unspecified (2) OAB (overactive bladder): Code(s): N32.81 - Overactive bladder Category: Medical (3) Hyperlipidemia: Code(s): E78.5 - Hyperlipidemia, unspecified Category: Medical Qualifiers: Hyperlipidemia type: unspecified Qualified Code(s): E78.5 - Hyperlipidemia, unspecified (4) History of colon polyps: Code(s): Z86.0100 - Personal history of colon polyps, unspecified Category: Medical Plan 69 year old to establish care Past medical, surgical, social history reviewed. Allergic rhinitis-trial addition of singulair Labs ordered Orders: Orders Complete Blood Count Auto Diff 03/10/25 E78.5 - Hyperlipidemia, unspecified, M54.9 - Dorsalgia, unspecified, M81.0 - Age-related osteoporosis without current pathological fracture, N32.81 - Overactive bladder, Z86.0100 - Personal history of colon polyps, unspecified Lipid Panel 03/10/25 E78.5 - Hyperlipidemia, unspecified, M54.9 - Dorsalgia, unspecified, M81.0 - Age-related osteoporosis without current pathological fracture, N32.81 - Overactive bladder, Z86.0100 - Personal history of colon polyps, unspecified TSH reflex Free T4 03/10/25 E78.5 - Hyperlipidemia, unspecified, M54.9 - Dorsalgia, unspecified, M81.0 - Age-related osteoporosis without current pathological fracture, N32.81 - Overactive bladder, Z86.0100 - Personal history of colon polyps, unspecified Comprehensive Met. Panel 03/10/25 E78.5 - Hyperlipidemia, unspecified, M54.9 - Dorsalgia, unspecified, M81.0 - Age-related osteoporosis without current pathological fracture, N32.81 - Overactive bladder, Z86.0100 - Personal history of colon polyps, unspecified Vitamin D 25-OH (D2 and D3) 03/10/25 E78.5 - Hyperlipidemia, unspecified, M54.9 - Dorsalgia, unspecified, M81.0 - Age-related osteoporosis without current pathological fracture, N32.81 - Overactive bladder, Z86.0100 - Personal history of colon polyps, unspecified Medications: New montelukast 10 mg PO DAILY 30 tabs 2RF
[2025-03-10 10:46] VITALS: BP 120/76; PULSE 85; TEMP 36.2; O2SAT 96; BMI 21.6
--- OUTSIDE RECORDS SUMMARY | 2025-03-10 11:59 | XMS_ITS | Patient Health Record ---
Author Organization [facility] Address [address] [place] [address] Care Team Providers Care Paperhanger Assistant Name Role Phone Luis Roth MD Primary Care Provider Patrice Escobar Unavailable [phone] Allergies Allergen (clinical drug ingredient) Drug/Non Drug Allergy documented on EMR Reaction Allergy Type Onset Date Status erythromycin Erythromycin Unknown Drug Allergy A ctive Ceftin Unknown Drug Allergy Active amoxicillin Amoxicillin Unknown Drug Allergy Act raz Substance with sulfonamide structure and antibacterial mechanism of action (substance) sulpha (uncoded) Unknown Allergy Active Reason For Referral No Information Medications Medication SIG (Take, Route, Frequency, Duration) [...] neede d Orally Once a day Active Immunizations Vaccine Route Administration Date Status Comme nts Influenza Unknown 08/19/2019 Administered Social History Tobacco Use: Social History Observation Description Date Details (start date - stop date) Never Smoker NA - NA Tobacco Use/Smoking Question Answer Notes Patient is a nonsmoker Alcohol Screen Question Answer Notes Did you have a drink containing alcohol in the p ast year? No Points 0 Interpretation Negative Section Notes: Nonsmoker; no alcohol Problems Problem Type SNOMED Code ICD Code Onset Dates Problem Status W/U Status Risk Notes Problem 011215170 Encounter for screening for malignant neoplasm of colon (Z12.11) Active confirmed Problem [id number] Preprocedural examination (Z01.818) Active confirmed Encounters Encounter Location Date Provider Diagnosis [facility] [address] [place] [address] 12/27/2024 Patrice Casas Plan Of Treatment Future Test Test Name Order Date COLONOSCOPY 08/19/2019 Next Appt Details Provider Name:Patrice Rhonda Casas , 05/03/2025 01:20:00 PM, [address], [address], [place], [address], Insurance Providers Payer Name Payer Address Payer Phone Subscriber Number Group Number Insured Name Patient Relationship to Insured Coverage Start Date Coverage End Date [facility] [address] [place] [phone] [id number] FRANCIE WILCOX MICHELLE Self - patient is the insured 0 Medical (General) History Medical History History ICD Code Endometriosis Denies [place],DM,CVA,Lung disease,renal dise ase Neg. colonoscopy in 12/2006 Overactive bladder Surgical History Surgery Date(Month/Year) Endometriosis surgery with removal of on e Fallopian tube and ovary Carpal tunnel release bilaterally Right foot surgery
--- OUTSIDE RECORDS SUMMARY | 2025-03-10 11:59 | XMS_ITS ---
Author Organization [facility] Address [address] [place] [address] Care Team Providers Care Surgical Services Assistant Name Role Phone Luis Roth MD Primary Care Provider Patrice Escobar [phone] REASON FOR VISIT r/s todays appt Encounters Encounter Location Date Provider Diagnosis [facility] [address] [place] [address] 12/27/2024 Patrice Casas Plan Of Treatment Next Appt Details Provider Name:Patrice Casas , 05/03/2025 01:20:00 PM, [address], [address], [place], [address], Progress Notes * MICHELLE ROMAN MDOB:[birth year] (69 yo F)Acc No.[id number]:12/27/2024 Patient:?MICHELLE ROMAN :1955???Age:69 Y???Sex:Female Address:[address] [place] [address] * true * Date:? Generated for Cristian johnson/Quoc/eTransmitting on:?03/10/2025 11:59 AM EDT
--- OUTSIDE RECORDS SUMMARY | 2025-03-10 11:59 | XMS_ITS ---
Author Organization [facility] Address [address] [place] [address] Care Team Providers Care Graphics Artist Name Role Phone Luis Roth MD Primary Care Provider Patrice Escobar [phone] REASON FOR VISIT screening colonoscopy Medications Medication [...] Active Encounters Encounter Location Date Provider Diagnosis [facility] [address] [place] [address] 12/27/2024 Patrice Casas Plan Of Treatment Next Appt Details Provider Name:Patrice Casas , 05/03/2025 01:20:00 PM, [address], [address], [place], [address], Progress Notes * MICHELLE ROMAN MDOB:[birth year] (69 yo F)Acc No.[id number]:12/27/2024 Progress Notes Patient:?MICHELLE ROMAN Provider:?Patrice Casas MD :1955???Age:69 Y???Sex:Female D ate:12/27/2024 Address:[address] [place], [place] [id number] Pcp:Luis Roth MD Subjective: * Chief Complaints: * ???1. Screening colonoscopy. * Medical History:? * Medications:?Taking oxyBUTYn in Chloride 5 MG Tablet 1 tablet Orally [...] directed Orally once a day Objective: * Vitals:? Assessment: Plan: * Treatment: * * The named appointment provid er may or may not be the originator of this progress note, and it is not deemed complete until electronically signed by the appointment provider. Sign off status: Pending * Provider:?Patrice Casas MD Date:? 025 Generated for Cristian johnson/Quoc/Sagrariosmitting on:?03/10/2025 11:58 AM EDT
== END 2025-03-10 11:49 | disposition home or self-care (01) ==
LOC: HO.HMCHD 10:52
PROVIDERS: PCP Internal Medicine; Visit Provider Internal Medicine
DX: J30.9 Allergic rhinitis, unspecified (principal); N32.81 Overactive bladder; E78.5 Hyperlipidemia, unspecified; Z86.0100 Personal history of colon polyps, unspecified

== ENCOUNTER → 2025-03-10 10:51 | Outpatient (BNVA) | payer MEDICARE, SELFPAY | PROVIDERS: PCP Internal Medicine; Visit Provider Internal Medicine | DX: J30.9 Allergic rhinitis, unspecified (principal); N32.81 Overactive bladder; E78.5 Hyperlipidemia, unspecified; Z86.0100 Personal history of colon polyps, unspecified | CPT/HCPCS: 96127; 99202 ==

== ENCOUNTER 2025-06-27 08:17 | Outpatient (REF) | payer MEDICARE, SELFPAY ==
--- OUTSIDE RECORDS SUMMARY | 2024-12-27 05:30 | XMS_ITS ---
Author Organization [facility] Address [address] [address] Care Team Providers Care Machine Striper Name Role Phone Irish Monterroso M.D. Primary Care Provider Unavail yossi Casas Patrice Unavailable [phone] REASON FOR VISIT screening colonoscopy Medications Medication [...] Diagnosis [facility] [address] [address] 12/27/2024 Patrice Casas Plan Of Treatment Next Appt Details Provider Name:Patrice Casas , 08/18/2025 09:30:00 AM, [address] [place] [address] , [place], [place], [phone], Progress Notes * MICHELLE ROMAN MDOB:[birth year] (70 yo F)Acc No.[id number]:12/27/2024 Progress Notes Patient: Wendy MICHELLE HAWLEY Provider: Emmy Casas MD :1955 A ge:69 Y S ex:Female Date:12/27/2024 Address:[address] [place], [place] [address] Pcp:Irish Monterroso M.D. Subjective: * Chief Complaints: [...] 12/27/2024 Generated for Cristian johnson/Quoc/Bgitting on: 0 06/27/2025 08:54 AM EDT
--- OUTSIDE RECORDS SUMMARY | 2025-06-27 08:55 | XMS_ITS | Patient Health Record ---
Author Organization [facility] Address [address] [place] [address] Care Team Providers Care Systems Mechanic Name Role Phone Luis Roth MD Primary Care Provider Alexander Suarez Unavailable [phone] Allergies Allergen (clinical drug ingredient) Drug/Non Drug Allergy documented on EMR Reaction Allergy Type Onset Date Status amoxicillin Amoxicillin itching Drug Allergy Act raz Ceftin diarrhea Drug Allergy Active erythromycin Erythromycin sensitivity Drug Allergy Active sulfa skin gets red Drug Allergy Act raz meperidine demerol can't remember Drug Allergy A ctive Reason For Referral No Information Medications Medication SIG (Take, Route, Frequency, Duration) Notes Start Date End Date Status Calcium 500 MG Orally Activ e Flaxseed (Linseed) N ot-Taking Hyoscyamine Sulfate Not-Taking oxyBUTYnin Chloride 5 MG as directed Orally Active Hartley Fiber Good Active Ibuprofen Active Multivitamin Active Vitamin D3 1000 UNIT Orally Not-Taking Vitamin C 500 MG Orally Not -Taking Probiotic Not-Taking Glucosamine Not-Taki ng Sertraline HCl 25 MG 1 tablet Orally Onc e a day; Duration: 30 day(s) Not-Taking Social History Tobacco Use: Social History Observation Description Date Details (start date - stop date) Never Smoker NA - NA Tobacco Use/Smoking Question Answer Notes Are you a: nonsmoker Additional Findings: Tobacco Non-User Current no n-smoker Alcohol Screen Question Answer Notes Did you have a drink containing alcohol in the p ast year? No Points 0 Interpretation Negative Tobacco use other than smoking: Question Answer Notes Are you an other tobacco user? No Plan Of Treatment Pending Test Test Name Order Date [id number] Destruction, 11-2210/20/2011 23902-Gysa Destruction, 11-2212/11/2011 77162-Blow Destruction, 11-2209/09/2012 69450-Wbnw Destruction, 11-2205/26/2013 23277-Pefz Destruction, 11-2203/30/2014 94207-Rzen Destruction, 11-2204/16/2015 85494-Uzxs Destruction, 11-2206/25/2017 20727-Fmgy Destruction, 11-2205/26/2018 Insurance Providers Payer Name Payer Address Payer Phone Subscriber Number Group Number Insured Name Patient Relationship to Insured Coverage Start Date Coverage End Date [facility] [address] [place] [address] [id number]ox Self - patient is the insured Medical (General) History Medical History History ICD Code warts mumps measles chicken pox back pain Surgical History Surgery Date(Month/Year) carpal tunnel surgery 1999 foot surgery 1981 endometrial ablation
[2025-06-27 10:04] LABS: MANUAL DIFF FLAG NO
[2025-06-27 10:19] LABS: Hematocrit 41.7 % (37.0-47.0); Hemoglobin 13.3 g/dl (12.0-16.0); Imm Gran Abs Auto 0.03 X10*3/uL (0.00-0.03); Imm Gran Pct Auto 0.6 % (0.0-0.4); Lymphocytes Absolute Auto 1.7 X10*3/uL (1.2-4.9); Mean Corpuscular HGB Conc 31.9 g/dl (31.0-35.0); Mean Corpuscular Hemoglobin 29.3 pg (27.0-33.0); Mean Corpuscular Volume 91.9 fL (80.0-98.0); NRBC Abs Auto 0.000 X10*3/uL (0.0-0.012); NRBC Pct Auto 0.0 /100WBC (0.0-0.2); Platelet Count 389 X10*3/uL (160-400); Red Blood Count 4.54 X10*6/uL (4.20-5.50); White Blood Count 5.2 X10*3/uL (4.8-10.8)
[2025-06-27 10:30] LABS: Alanine Aminotransferase 21 U/L (0-31); Albumin Level 4.3 g/dL (3.5-5.0); Alkaline Phosphatase 66 U/L (39-117); Anion Gap 11 (12-20); Aspartate Amino Transferase 29 U/L (5-31); Blood Urea Nitrogen 12 mg/dL (9-16); Calcium 8.8 mg/dL (8.4-10.2); Carbon Dioxide 29 mmol/L (22-29); Chloride 106 mmol/L (96-108); Cholesterol 226 mg/dL (<200); Estimated Glomerular Filt Rate > 60; HDL Cholesterol 51 mg/dL (>40); Potassium 3.9 mmol/L (3.3-5.1); Sodium 142 mmol/L (135-145); Total Protein 7.2 g/dL (6.5-8.0); Triglycerides 131 mg/dL (<150)
[2025-07-04 15:03] LABS: Vitamin D 25-OH, D2 <4 ng/mL; Vitamin D 25-OH, D3 39 ng/mL; Vitamin D 25-OH, Total 39 ng/mL (30-100)
== END 2025-06-27 08:18 | disposition home or self-care (01) ==
LOC: HO.HMGCLDS 08:17
PROVIDERS: PCP Internal Medicine; Visit Provider Internal Medicine
DX: M81.0 Age-related osteoporosis without current pathological fracture (principal); N32.81 Overactive bladder; E78.5 Hyperlipidemia, unspecified; M54.9 Dorsalgia, unspecified; Z86.0100 Personal history of colon polyps, unspecified
CPT/HCPCS: 36415; 80053; 80061; 82306; 84443; 85025

== ENCOUNTER 2025-07-21 14:16 | Outpatient (AMB) | payer MEDICARE, SELFPAY ==
--- OUTSIDE RECORDS SUMMARY | 2024-12-27 05:30 | XMS_ITS ---
Author Organization [facility] Address [address] [address] Care Team Providers Care Electrician Maintenance Name Role Phone Irish Monterroso M.D. Primary Care Provider Unavail yossi Casas Patrice Unavailable [phone] REASON FOR VISIT screening colonoscopy Medications Medication SIG (Take, Route, Frequency, Duration) Notes Start Date End Date Status Calcium 500 MG 1 tablet with meals Orally Once a day Active Fiber Adult Gummies 2 GM as directed Ora lly once a day Active Ibuprofen 600 MG 1 tablet with food o r milk as needed Orally prn Active Multi Vitamin/Minerals - as directed Ora lly once a day Active Meclizine HCl 12.5 MG 2 tablets as neede d Orally Once a day Active oxyBUTYnin Chloride 5 MG 1 tablet Orally Twice a day for 30 day(s) Active Encounters Encounter Location Date Provider Diagnosis [facility] [address] [address] 12/27/2024 Patrice Casas Plan Of Treatment Next Appt Details Provider Name:Patrice Casas , 08/18/2025 09:30:00 AM, [address] [place] [address] , [place] [employer], [place], [phone], Progress Notes * MICHELLE ROMAN MDOB:[birth year] (70 yo F)Acc No.[id number]:12/27/2024 Progress Notes Patient: Wendy MICHELLE HAWLEY Provider: Emmy Casas MD :1955 A ge:69 Y S ex:Female Date:12/27/2024 Address:[address] [place] [address] Pcp:Irish Monterroso M.D. Subjective: * Chief Complaints: * 1 . Screening colonoscopy. * Medical History: * Medications: T aking oxyBUTYnin Chloride 5 MG Tablet 1 tablet Orally Twice a day , Taking Meclizine HCl 12.5 MG Tablet 2 tablets as needed Orally Once a day , Taking Ibuprofen 600 MG Tablet 1 tablet with food or milk as needed Orally prn , Taking Multi Vitamin/Minerals - Tablet as directed Orally once a day , Taking Calcium 500 MG Tablet 1 tablet with meals Orally Once a day , Taking Fiber Adult Gummies 2 GM Tablet Chewable as directed Orally once a day Objective: * Vitals: Assessment: Plan: * Treatment: * * The named appointment provid er may or may not be the originator of this progress note, and it is not deemed complete until electronically signed by the appointment provider. Sign off status: Pending * Provider: Emmy Casas MD Date: 0 12/27/2024 Generated for Cristian johnson/Quoc/Bgitting on: 0 07/21/2025 05:12 PM EDT
--- NOTE | 2025-07-21 14:38 | MHC.PC.OV ---
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 Helper Required: No Accompanied by: Self / Same As Patient Allergies amoxicillin (AMOXICILLIN) Allergy (Unknown, Verified 07/21/25 14:52) ITCHY cefuroxime (From CEFTIN) Allergy (Unknown, Verified 07/21/25 14:52) DIARRHEA erythromycin base (ERYTHROMYCIN BASE) Allergy (Unknown, Verified 07/21/25 14:52) UNKNOWN Sulfa (Sulfonamide Antibiotics) (SULFA (SULFONAMIDE ANTIBIOTICS)) Allergy (Unknown, Verified 07/21/25 14:52) REDNESS Medication List - Last Reconciled 07/21/25 by ELTON Bernabe ascorbate calcium (vitamin C) 500 mg PO DAILY betamethasone dipropionate 0.05% 1 appl topical DAILY fluticasone propionate 50 mcg/actuation sprays intranasal meclizine mg PO DAILY PRN montelukast 10 mg PO DAILY multivitamin 1 tab PO DAILY Tobacco use date assessed: 03/10/25 Dental Screening Dental Screen Date: 03/10/25 HPI HPI Comments History of Present Illness Details 69 year old female with a past medical history of hyperlipidemia, back pain, OAB, h/o colonic polyps presenting for annual physical exam. Lives with her sister. 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 No alcohol use. No history of cigarette smoking, 2nd hand exposure. No illicit drugs of marijuana. Walks for exercise and does a circuit exercise at [employer]. Has not been great with her diet but would like to work on improving this. OAB: Follows with urology. Taken off oxybutynin due to age >70. Since going off oxybutynin has had increase in allergic rhinitis. Taking claritin, astepro, flonase all without sustained effect. Sister taking montelukast she would like to add/trial. She declines allergy shots Vertigo-meclizine p.r.n. Laying fat. Considering PT for yaneth. Osteoporosis- not interested in medication at this time. On calcium/vit D. Last D level 37. Does participate in weight bearing exercises Hyperlidemia- last LDL 149. No statin Chronic neck pain- occ chiro visits. Pain across neck and upper trap Word finding. Reports he will occasionally state the wrong word such as a spoon instead of a 4 Health maintenance: Colonoscopy 2019- upcoming in 3 weeks Mammo 10/2024- [facility] Oct 23 Eye exams Dental exams Reviewed past medical, surgical, family, social history ROS: General: No fevers, malaise, unintentional weight loss HEENT: No blurred vision, diplopia. No sore throat, nasal congestion, rhinorrhea, sinus pain, ear pain. No hearing loss Neck - no adenopathy Cardiovascular: No chest pain, palpitations, or leg edema Respiratory: No shortness of breath, wheezing, cough Breast: No pain, palpable lumps, nipple inversion GI: No dysphagia, odynophagia, globus sensation. No abdominal pain, nausea, vomiting, diarrhea, constipation, melena, hematochezia : No dysuria, hematuria, increased urinary frequency, decreased urinary output. POSTMASTER RELIEF: No abn vaginal bleeding or discharge MSK: No myalgia, back pain, arthralgias Neuro: No headaches, weakness, paresthesias Psych: no depression/anxiery. No AH/VH. No SI/HI Skin: No rashes or lesions EXAM: Constitutional - Awake and Alert, No apparent distress Eyes - PERRLA, EOMI. Anicteric Ears - external ears normal, canals clear, TMs intact and pearly hobson with good cone of light Nose- septum midline, nares clear, no sinus tenderness Mouth/throat- mucosa moist, tongue and uvula midline, no erythema/edema or tonsillar adenopathy. Neck-trachea midline, thyroid symmetric without palpable nodules, no adenopathy Cardiovascular - S1S2, RRR, No edema Respiratory - Normal lung expansion, Normal respiratory effort, No respiratory distress, CTA bilaterally Gastrointestinal - NT / ND; +BS; No rebound or guarding - No CVA tenderness Extremities - no calf tenderness bilaterally, no swelling Musculoskeletal - Normal inspection, normal ROM Skin - Warm/Dry, no concerning lesions Neurological - Alert & oriented x3, CN II-XII in tact, 5/5 strength BUE and BLE, 2+ patellar reflexes, sensation intact Psychological - Appropriate affect [facility] Medical History Hyperlipidemia Surgical History S/P carpal tunnel release History of colonoscopy (~12/05/19) Family History Mother No problems noted. Father Alzheimer dementia Paternal Aunt Diabetes Social History Housing: House Patient Tobacco Use Status: Never used Tobacco e-Cigarette/Vaping Use: Never Used service: No Current occupational status: retired Cognitive needs: No Hearing needs: Yes (bilateral ) Vision needs: Yes (rx glasses) Questionnaire Thrive Questionnaire Date Thrive assessed: 03/10/25 PERFECTO-7 AMB Questionnaire PERFECTO-7 Date PERFECTO - 7 assessed: 03/10/25 Source: Developed by Drs. Patrice Woodruff, Alvina Forte, Vik Meeks and colleagues, with an educational tiff from [employer]. Physical exam (Primary Care) Vital Signs: Last Vital Signs Temp 97.6 F 07/21/25 14:53 Pulse 105 H 07/21/25 14:53 BP 108/60 07/21/25 14:53 Pulse Ox 97 07/21/25 14:53 Oxygen Delivery Method Room Air 07/21/25 14:53 BMI result Body Mass Index 22.3 Tobacco/Smoking Status: Tobacco use Status Tobacco use date assessed 03/10/25 07/21/25 14:40 Patient Tobacco Use Status Never used Tobacco 07/21/25 14:40 e-Cigarette/Vaping Use Never Used 07/21/25 14:40 Thrive Assessment: Date of Thrive Assessment Date Thrive assessed 03/10/25 07/21/25 14:40 Coding Level of Care Code Est Pt Prev Care >65y(45777) Diagnoses Routine medical exam Z00.00 OAB (overactive bladder) N32.81 Osteoporosis M81.0 Hyperlipidemia, unspecified hyperlipidemia type E78.5 Hyperlipidemia type: unspecified Assessment & Plan Assessment & Plan (1) Routine medical exam: Code(s): Z00.00 - Encounter for general adult medical examination without abnormal findings Plan: 70-year-old female presenting for annual physical exam. Plan as below (2) OAB (overactive bladder): Code(s): N32.81 - Overactive bladder Category: Medical Plan: Stable (3) Osteoporosis: Code(s): M81.0 - Age-related osteoporosis without current pathological fracture Category: Medical Plan: Not interested in medication at this time. Continue weight-bearing exercise as well as calcium vitamin-D supplementation (4) Hyperlipidemia: Code(s): E78.5 - Hyperlipidemia, unspecified Category: Medical Qualifiers: Hyperlipidemia type: unspecified Qualified Code(s): E78.5 - Hyperlipidemia, unspecified Plan: Reviewed last cholesterol results. Uncontrolled. Not interested in statin at this time. We will continue with lifestyle modifications and recheck at upcoming visit Plan To continue working with her chiropractor regarding the neck and upper trapezius pain Recent labs reviewed with patient Continue with screening mammograms, Pap smears, colonoscopies Continue following for annual skin exams and use sun protection Annual eye exams Wear seat belt in car Recommend regular exercise and healthy diet Follow-up in 1 year Orders: Orders Basic Metabolic Panel 1 Year E78.5 - Hyperlipidemia, unspecified, M81.0 - Age-related osteoporosis without current pathological fracture, Z00.00 - Encounter for general adult medical examination without abnormal findings Liver Panel 1 Year E78.5 - Hyperlipidemia, unspecified, M81.0 - Age-related osteoporosis without current pathological fracture, Z00.00 - Encounter for general adult medical examination without abnormal findings Complete Blood Count Auto Diff 1 Year E78.5 - Hyperlipidemia, unspecified, M81.0 - Age-related osteoporosis without current pathological fracture, Z00.00 - Encounter for general adult medical examination without abnormal findings Vitamin D 25-OH Total 1 Year E78.5 - Hyperlipidemia, unspecified, M81.0 - Age-related osteoporosis without current pathological fracture, Z00.00 - Encounter for general adult medical examination without abnormal findings Lipid Panel 1 Year E78.5 - Hyperlipidemia, unspecified, M81.0 - Age-related osteoporosis without current pathological fracture, Z00.00 - Encounter for general adult medical examination without abnormal findings Referrals CLINICAL ASST Referral Z01.419 - Encounter for gynecological examination (general) (routine) without abnormal findings
[2025-07-21 14:53] VITALS: BP 108/60; PULSE 105; TEMP 36.4; O2SAT 97; BMI 22.3
--- OUTSIDE RECORDS SUMMARY | 2025-07-21 17:12 | XMS_ITS | Patient Health Record ---
Author Organization [facility] Address [address] [place] [address] Care Team Providers Care Steam Presser Name Role Phone Luis Roth MD Primary Care Provider Alexander Suarez Unavailable [phone] Allergies Allergen (clinical drug ingredient) Drug/Non Drug [...] Treatment Pending Test Test Name Order Date [id number] Destruction, 11-2210/20/2011 [id number] Destruction, 11-2212/11/2011 [id number] Destruction, 11-2209/09/2012 [id number] Destruction, 11-2205/26/2013 [id number] Destruction, 11-2203/30/2014 [id number] Destruction, 11-2204/16/2015 [id number] Destruction, 11-2206/25/2017 [id number] Destruction, 11-2205/26/2018 Insurance Providers Payer Name Payer Address Payer Phone Subscriber Number Group Number Insured Name Patient Relationship to Insured Coverage Start Date Coverage End Date [facility] [address] [place] [address] [id number] Diane Maddox Self - patient is the insured Medical (General) History Medical History History ICD Code warts mumps measles chicken pox back pain Surgical History Surgery Date(Month/Year) carpal tunnel surgery 1999 foot surgery 1981 endometrial ablation
--- OUTSIDE RECORDS SUMMARY | 2025-07-21 17:12 | XMS_ITS | Patient Health Record ---
Author Organization [facility] Address [address] [place] [address] Care Team Providers Care Production Shift Supervisor Name Role Phone Irish Monterroso M.D. Primary Care Provider Unavail able Patrice Casas Unavailable [phone] Allergies Allergen (clinical drug ingredient) Drug/Non Drug Allergy documented on EMR Reaction Allergy Type Onset Date Status mirabegron Mirabegron Unknown Drug Allergy Activ e erythromycin Erythromycin Unknown Drug Allergy A ctive Ceftin Unknown Drug Allergy Active amoxicillin Amoxicillin Unknown Drug Allergy Act raz Substance with sulfonamide structure and antibacterial mechanism of action (substance) sulpha (uncoded) Unknown Allergy Active doxycycline Doxycycline Unknown Drug Allergy Act raz Reason For Referral No Information Medications Medication SIG (Take, Route, Frequency, Duration) Notes Start Date End Date Status Multi Vitamin/Minerals - as directed Ora lly once a day Active Calcium 500 MG 1 tablet with meals Orally Once a day Active Fiber Adult Gummies 2 GM as directed Ora lly once a day Active Fluticasone Propionate (Inhal) 50 MCG/ACT 1 puff Inhalation Twice a day 05/03/2025 Active Meclizine HCl 12.5 MG 2 tablets as neede d Orally Once a day Active Ibuprofen 600 MG 1 tablet with food o r milk as needed Orally prn as needed Active Ondansetron 4 MG 1 tablet on the tong ue and allow to dissolve Orally Every 6 hours for nausea during the colonoscopy prep. You can take it shortly before the prep and again 6 hours later to try to prevent nausea as well. for 1 days 05/03/2025 Active Montelukast Sodium 10 MG 1 tablet Orally Once a day for 30 day(s) 05/03/2025 Active Betameth Diprop Aug & Silver 05/03/2025 Active Tylenol 8 Hour 650 MG 2 tablets as neede d Orally every 8 hrs as needed Active Immunizations Vaccine Route Administration Date Status Comme nts Influenza Unknown 08/19/2019 Administered Influenza Unknown 08/30/2024 Administered Social History Tobacco Use: Social History Observation Description Date Details (start date - stop date) Never Smoker NA - NA Tobacco Use/Smoking Question Answer Notes Patient is a nonsmoker Alcohol Screen Question Answer Notes Did you have a drink containing alcohol in the p ast year? No Points 0 Interpretation Negative Section Notes: Nonsmoker; no alcohol Nonsmoker; no alcohol Problems Problem Type SNOMED Code ICD Code Onset Dates Problem Status W/U Status Risk Notes Problem Colon cancer screening (663577428) Colon cancer screening (Z12.11) Active confirmed Problem 513127221 Encounter for screening for malignant neoplasm of colon (Z12.11) Active confirmed Problem Nausea (163158575) Nausea (R11.0) Active confir med Problem 690664724514101 Preprocedural examination (Z01.818) Active confirmed Problem History of adenomatous polyp of colon (429538721) History of adenomatous polyp of colon (Z86.0101) Active confirmed Vital Signs Temperature 97.5 degrees Fahrenheit 05/03/2025 Blood pressure diastolic 01 mm Hg 05/03/2025 Height 61.75 in 05/03/2025 Blood pressure systolic 001 mm Hg 05/03/2025 Weight 120.4 lbs 05/03/2025 BMI 22.2 kg/m2 05/03/2025 Procedures Procedure Date Ordered Date Performed Result Body Sit e COLONOSCOPY 05/03/2025 N/A Encounters Encounter Location Date Provider Diagnosis [facility] [address] [place] [address] 05/03/2025 Patrice Casas History of adenomato us polyp of colon Z86.0101 ; Preprocedural examination Z01.818 ; Colon cancer screening Z12.11 and Nausea R11.0 [facility] [address] [place] [address] 12/27/2024 Patrice Casas Assessments Encounter Date Diagnosis (ICD Code) Assessment Notes Treatment Notes Treatment Clinical Notes Section Notes 05/03/2025 Preprocedural examination (ICD-10 - Z01.818) Overall, Diane appears quite well. I did recommend a follow-up colonoscopy for further screening given her history of tubular adenomas removed over 5 years ago. We did review the rationale for this in regard to colon cancer prevention. Full consent has been obtained for this, including risks of bleeding and perforation. The procedure will be done with monitored anesthesia care. I shall give her a prescription for some Zofran to have on hand the night before the procedure in the event she needs it during the prep. Diane was comfortable with this plan. Thank you again for allowing me to participate in Diane's care. I shall continue to keep you advised of her progress. 05/03/2025 History of adenomatous polyp of colon (ICD-10 - Z86.0101) Overall, Diane appears quite well. I did recommend a follow-up colonoscopy for further screening given her history of tubular adenomas removed over 5 years ago. We did review the rationale for this in regard to colon cancer prevention. Full consent has been obtained for this, including risks of bleeding and perforation. The procedure will be done with monitored anesthesia care. I shall give her a prescription for some Zofran to have on hand the night before the procedure in the event she needs it during the prep. Diane was comfortable with this plan. Thank you again for allowing me to participate in Diane's care. I shall continue to keep you advised of her progress. 05/03/2025 Colon cancer screening (ICD-10 - Z12.11) Overall, Diane appears quite well. I did recommend a follow-up colonoscopy for further screening given her history of tubular adenomas removed over 5 years ago. We did review the rationale for this in regard to colon cancer prevention. Full consent has been obtained for this, including risks of bleeding and perforation. The procedure will be done with monitored anesthesia care. I shall give her a prescription for some Zofran to have on hand the night before the procedure in the event she needs it during the prep. Diane was comfortable with this plan. Thank you again for allowing me to participate in Diane's care. I shall continue to keep you advised of her progress. 05/03/2025 Nausea (ICD-10 - R11.0) Overall, Diane appears quite well. I did recommend a follow-up colonoscopy for further screening given her history of tubular adenomas removed over 5 years ago. We did review the rationale for this in regard to colon cancer prevention. Full consent has been obtained for this, including risks of bleeding and perforation. The procedure will be done with monitored anesthesia care. I shall give her a prescription for some Zofran to have on hand the night before the procedure in the event she needs it during the prep. Diane was comfortable with this plan. Thank you again for allowing me to participate in Diane's care. I shall continue to keep you advised of her progress. Plan Of Treatment Pending Test Test Name Order Date COLONOSCOPY 05/03/2025 Future Test Test Name Order Date COLONOSCOPY 08/19/2019 Next Appt Details Provider Name:Patrice Casas , 08/18/2025 09:30:00 AM, [address] [place] [address] , [place], [place], [id number], Insurance Providers Payer Name Payer Address Payer Phone Subscriber Number Group Number Insured Name Patient Relationship to Insured Coverage Start Date Coverage End Date [facility] [address] [place] [phone] [id number] FRANCIE WILCOXDIANE Self - patient is the insured 4 Medical (General) History Medical History History ICD Code Endometriosis Denies [place],DM,CVA,Lung disease,renal dise ase Neg. colonoscopy in 12/2006 Overactive bladder Screening colonoscopy in November 2019 ri th 2 small tubular adenomas removed Surgical History Surgery Date(Month/Year) Right foot surgery Carpal tunnel release bilaterally Endometriosis surgery with removal of on e Fallopian tube and ovary
== END 2025-07-21 15:30 | disposition home or self-care (01) ==
LOC: HO.HMCHD 14:16
PROVIDERS: PCP Internal Medicine; Visit Provider Physician Assistant
DX: Z00.00 Encounter for general adult medical examination without abnormal findings (principal); N32.81 Overactive bladder; M81.0 Age-related osteoporosis without current pathological fracture; E78.5 Hyperlipidemia, unspecified

== ENCOUNTER → 2025-07-21 14:16 | Outpatient (BNVA) | payer MEDICARE, SELFPAY | PROVIDERS: PCP Internal Medicine; Visit Provider Physician Assistant | DX: Z00.00 Encounter for general adult medical examination without abnormal findings (principal); N32.81 Overactive bladder; M81.0 Age-related osteoporosis without current pathological fracture; E78.5 Hyperlipidemia, unspecified; R42 Dizziness and giddiness; M54.2 Cervicalgia; G89.29 Other chronic pain | CPT/HCPCS: 99397 ==

== ENCOUNTER 2025-07-24 14:35 | Outpatient (REF) | payer SELFPAY ==
--- OUTSIDE RECORDS SUMMARY | 2024-12-27 05:30 | XMS_ITS ---
Author Organization [facility] Address [address] [address] Care Team Providers Care Graphics Programmer Name Role Phone Irish Monterroso M.D. Primary Care Provider Unavail yossi Casas Patrice Unavailable [phone] REASON FOR VISIT screening colonoscopy Medications Medication [...] Active Encounters Encounter Location Date Provider Diagnosis [facility] [address] [address] 12/27/2024 Patrice Casas Plan Of Treatment Next Appt Details Provider Name:Patrice Casas , 08/18/2025 09:30:00 AM, [address] [place] [address] , [place], [place], [phone], Progress Notes * MICHELLE ROMAN MDOB:[birth year] (70 yo F)Acc No.[id number]:12/27/2024 Progress Notes Patient: Wendy MICHELLE HAWLEY Provider: Emmy Casas MD :1955 A ge:69 Y S ex:Female Date:12/27/2024 Address:[address] [place], [place] [phone] Pcp:Irish Monterroso M.D. Subjective: * Chief Complaints: [...] 12/27/2024 Generated for Cristian johnson/Quoc/Bgitting on: 0 07/24/2025 08:01 PM EDT
--- OUTSIDE RECORDS SUMMARY | 2025-07-24 20:01 | XMS_ITS | Patient Health Record ---
Author Organization [facility] Address [address] [place] [address] Care Team Providers Care Lining Caser Name Role Phone Luis Roth MD Primary Care Provider Alexander Suarez Unavailable [phone] Allergies Allergen (clinical drug ingredient) Drug/Non Drug [...] Treatment Pending Test Test Name Order Date [id number] Destruction, 11-2210/20/2011 [id number] Destruction, 11-2212/11/2011 [id number] Destruction, 11-2209/09/2012 [id number] Destruction, 11-2205/26/2013 [id number] Destruction, 11-2203/30/2014 [id number] Destruction, 11-2204/16/2015 [id number] Destruction, 11-2206/25/2017 [id number] Destruction, 11-2205/26/2018 Insurance Providers Payer Name Payer Address Payer Phone Subscriber Number Group Number Insured Name Patient Relationship to Insured Coverage Start Date Coverage End Date [facility] [address] [place] [address] [id number] Diane Maddox Self - patient is the insured Medical (General) History Medical History History ICD Code warts mumps measles chicken pox back pain Surgical History Surgery Date(Month/Year) carpal tunnel surgery 1999 foot surgery 1981 endometrial ablation
--- OUTSIDE RECORDS SUMMARY | 2025-07-24 20:01 | XMS_ITS | Patient Health Record ---
Author Organization [facility] Address [address] [place] [address] Care Team Providers Care Pumping Plant Operator Name Role Phone Irish Monterroso M.D. Primary Care Provider Unavail able Patrice Casas Unavailable [phone] Allergies Allergen (clinical drug ingredient) Drug/Non Drug Allergy documented on EMR Reaction Allergy Type Onset Date Status doxycycline Doxycycline Unknown Drug Allergy Act raz mirabegron Mirabegron Unknown Drug Allergy Activ e [...] Status Risk Notes Problem Colon cancer screening (086867192) Colon cancer screening (Z12.11) Active confirmed Problem 378226713 Encounter for screening for malignant neoplasm of colon (Z12.11) Active confirmed Problem Nausea (106299431) Nausea (R11.0) Active confir med Problem 864008395185017 Preprocedural examination (Z01.818) Active confirmed Problem History of adenomatous polyp of colon (703565781) History of adenomatous polyp of colon (Z86.0101) Active confirmed Vital Signs Temperature 97.5 degrees Fahrenheit 05/03/2025 Blood pressure diastolic 01 mm Hg 05/03/2025 Height 61.75 in 05/03/2025 Blood pressure systolic 001 mm Hg 05/03/2025 Weight 120.4 lbs 05/03/2025 BMI 22.2 kg/m2 05/03/2025 Procedures Procedure Date Ordered Date Performed Result Body Sit e COLONOSCOPY 05/03/2025 N/A Encounters Encounter Location Date Provider Diagnosis [facility] [address] [place] [address] 05/03/2025 Patrice Casas History of adenomato us polyp of colon Z86.0101 ; Preprocedural examination Z01.818 ; Colon cancer screening Z12.11 and Nausea R11.0 [facility] [address] [place] [address] 12/27/2024 Patrice Casas Assessments Encounter Date Diagnosis [...] Provider Name:Patrice Casas , 08/18/2025 09:30:00 AM, [address] [place] [address] , [place], [place], [id number], Insurance Providers Payer Name Payer Address Payer Phone Subscriber Number Group Number Insured Name Patient Relationship to Insured Coverage Start Date Coverage End Date [facility] [address] [place] [phone] [id number] FRANCIE WILCOXDIANE Self - patient is the insured 4 Medical (General) History Medical History History ICD Code Endometriosis Denies [place],DM,CVA,Lung disease,renal dise ase Neg. colonoscopy in 12/2006 Overactive bladder Screening colonoscopy in November 2019 ks th 2 small tubular adenomas removed Surgical History Surgery Date(Month/Year) Right foot surgery Carpal tunnel release bilaterally Endometriosis surgery with removal of on e Fallopian tube and ovary
== END 2025-07-24 14:36 | disposition home or self-care (01) ==
LOC: HO.HAP 14:35
PROVIDERS: Visit Provider Internal Medicine
DX: Z13.89 Encounter for screening for other disorder (principal)

== ENCOUNTER 2025-08-03 11:44 | Outpatient (REF) | payer SELFPAY ==
--- OUTSIDE RECORDS SUMMARY | 2024-12-27 05:30 | XMS_ITS ---
Author Organization [facility] Address [address] [address] Care Team Providers Care Core Analyst Name Role Phone Irish Monterroso M.D. Primary Care Provider Unavail yossi Casas Patrice Unavailable [phone] REASON FOR VISIT screening colonoscopy Medications Medication [...] Active Encounters Encounter Location Date Provider Diagnosis [facility] [address] [address] 12/27/2024 Patrice Casas Plan Of Treatment Next Appt Details Provider Name:Patrice Casas , 08/18/2025 09:30:00 AM, [address] [place] [address] , [place], [place], [phone], Progress Notes * MICHELLE ROMAN MDOB:[birth year] (70 yo F)Acc No.[id number]:12/27/2024 Progress Notes Patient: Wendy MICHELLE HAWLEY Provider: Emmy Casas MD :1955 A ge:69 Y S ex:Female Date:12/27/2024 Address:[address] [place], [place] [id number] Pcp:Irish Monterroso M.D. Subjective: * Chief Complaints: [...] 12/27/2024 Generated for Cristian johnson/Quoc/Bgitting on: 0 08/03/2025 04:36 PM EDT
--- OUTSIDE RECORDS SUMMARY | 2025-08-03 16:36 | XMS_ITS | Patient Health Record ---
Author Organization [facility] Address [address] [place] [address] Care Team Providers Care Surgical Instruments Inspector Name Role Phone Luis Roth MD Primary Care Provider Alexander Suarez Unavailable [phone] Allergies Allergen (clinical drug ingredient) Drug/Non Drug [...] Treatment Pending Test Test Name Order Date [id number] Destruction, 11-2210/20/2011 [id number] Destruction, 11-2212/11/2011 [id number]-Bypb Destruction, 11-2209/09/2012 [id number] Destruction, 11-2205/26/2013 [id number] Destruction, 11-2203/30/2014 [id number] Destruction, 11-2204/16/2015 [id number] Destruction, 11-2206/25/2017 [id number] Destruction, 11-2205/26/2018 Insurance Providers Payer Name Payer Address Payer Phone Subscriber Number Group Number Insured Name Patient Relationship to Insured Coverage Start Date Coverage End Date [facility] [address] [place] [address] [id number] Diane Maddox Self - patient is the insured Medical (General) History Medical History History ICD Code warts mumps measles chicken pox back pain Surgical History Surgery Date(Month/Year) carpal tunnel surgery 1999 foot surgery 1981 endometrial ablation
--- OUTSIDE RECORDS SUMMARY | 2025-08-03 16:37 | XMS_ITS | Patient Health Record ---
Author Organization [facility] Address [address] [place] [address] Care Team Providers Care Glass Technician/Installer Name Role Phone Irish Monterroso M.D. Primary Care Provider Unavail able Patrice Casas Unavailable [phone] Allergies Allergen (clinical drug ingredient) Drug/Non Drug [...] Status Risk Notes Problem Colon cancer screening (558998225) Colon cancer screening (Z12.11) Active confirmed Problem 754475628 Encounter for screening for malignant neoplasm of colon (Z12.11) Active confirmed Problem Nausea (293707763) Nausea (R11.0) Active confir med Problem 857616558938865 Preprocedural examination (Z01.818) Active confirmed Problem History of adenomatous polyp of colon (052387750) History of adenomatous polyp of colon (Z86.0101) Active confirmed Vital Signs Temperature 97.5 degrees Fahrenheit 05/03/2025 Blood pressure diastolic 01 mm Hg 05/03/2025 Height 61.75 in 05/03/2025 Blood pressure systolic 001 mm Hg 05/03/2025 Weight 120.4 lbs 05/03/2025 BMI 22.2 kg/m2 05/03/2025 Procedures Procedure Date Ordered Date Performed Result Body Sit e COLONOSCOPY 05/03/2025 N/A Encounters Encounter Location Date Provider Diagnosis [facility] [address] [place] [address] 05/03/2025 Patrice Casas History of adenomato us polyp of colon Z86.0101 ; Preprocedural examination Z01.818 ; Colon cancer screening Z12.11 and Nausea R11.0 [facility] [address] [place] [address] 12/27/2024 Patrice Casas Assessments Encounter Date Diagnosis [...] Provider Name:Patrice Casas , 08/18/2025 09:30:00 AM, [address] [place] [address] , [place], [place], [id number], Insurance Providers Payer Name Payer Address Payer Phone Subscriber Number Group Number Insured Name Patient Relationship to Insured Coverage Start Date Coverage End Date [facility] [address] [place] [phone] [id number] FRANCIE WILCOXDIANE Self - patient is the insured 4 Medical (General) History Medical History History ICD Code Endometriosis Denies [place],DM,CVA,Lung disease,renal dise ase Neg. colonoscopy in 12/2006 Overactive bladder Screening colonoscopy in November 2019 mo th 2 small tubular adenomas removed Surgical History Surgery Date(Month/Year) Right foot surgery Carpal tunnel release bilaterally Endometriosis surgery with removal of on e Fallopian tube and ovary
== END 2025-08-03 11:45 | disposition home or self-care (01) ==
LOC: HO.HAP 11:44
PROVIDERS: Visit Provider Internal Medicine
DX: Z13.89 Encounter for screening for other disorder (principal)

== ENCOUNTER 2025-08-16 11:04 | Outpatient (REF) | payer SELFPAY ==
--- NOTE | 2025-08-16 11:49 | MHC.AU.HA3 ---
Hearing Instrument Follow-Up- Binaural Date of Visit: 08/16/25 Right Ear: Make, Model, Color, Serial Number: Wicho Sharma [id number] SN: [id number] Color: Sand Beige Rubber Stamp Maker Repair Warranty: 10/20/2026 Rubber Stamp Maker Loss and Damage Warranty: 10/20/2026 [facility] Service Plan: 09/01/2025 Battery Size: 13 Wind Field Service Manager/Slim Tube: 0P Earmold/Dome/CShell/SlimTip:Phonak Skeleton C-Shell SN: [id number] Nabil: 10/21/2022 Type of Wax Guard: CeruStop Dispensed By: [facility] Date of Fittin09/01/2022 Left Ear: Make, Model, Color, Serial Number: Wicho Sharma [id number] SN: [id number] Color: Sand Beige Rubber Stamp Maker Repair Warranty: 10/20/2026 Rubber Stamp Maker Loss and Damage Warranty: 10/20/2026 [facility] Service Plan: 09/01/2025 Battery Size: 13 Wind Field Service Manager/Slim Tube: 1P Earmold/Dome/CShell/SlimTip: Phonak Skeleton C-Shell SN: [id number] Nabil: 04/10/2025 Type of Wax Guard: CeruStop Dispensed By: [facility] Date of Fittin09/01/2022 Follow-Up Summary: Reprogrammed old HAs to updated hearing test to have as back up. Extended warranty on new HAs via Phonak through 10/20/2026. 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 Did not want to extend Service Agreement at this time. Recommendations: Hearing instrument follow-up or maintenance as needed. Please contact our clinic with any questions or concerns. Diagnosis Code(s): Primary Diagnosis: H90.3 Bilateral Sensorineural Hearing Loss Signature: Provider: Cristiane Roy, [facility]
== END 2025-08-16 11:05 | disposition home or self-care (01) ==
LOC: HO.HAP 11:04
PROVIDERS: Visit Provider Internal Medicine
DX: Z46.1 Encounter for fitting and adjustment of hearing aid (principal); H90.3 Sensorineural hearing loss, bilateral
CPT/HCPCS: V5299

== ENCOUNTER 2025-08-18 07:23 | Day surgery (SDC) | payer SELFPAY ==
--- OUTSIDE RECORDS SUMMARY | 2024-12-27 05:30 | XMS_ITS ---
Author Organization [facility] Address [address] [address] Care Team Providers Care Transportation Job Titles Name Role Phone Irish Monterroso M.D. Primary Care Provider Unavail yossi Casas Patrice Unavailable [phone] REASON FOR VISIT screening colonoscopy Medications Medication [...] Active Encounters Encounter Location Date Provider Diagnosis [facility] [address] [address] 12/27/2024 Patrice Casas Plan Of Treatment Next Appt Details Provider Name:Patrice Casas , 08/18/2025 09:30:00 AM, [address] [place] [address] , [place], [place], [phone], Progress Notes * MICHELLE ROMAN MDOB:[birth year] (70 yo F)Acc No.[id number]:12/27/2024 Progress Notes Patient: Wendy MICHELLE HAWLEY Provider: Emmy Casas MD :1955 A ge:69 Y S ex:Female Date:12/27/2024 Address:[address] [place], [place] [id number] Pcp:Irish Monterroso M.D. Subjective: * Chief Complaints: [...] 12/27/2024 Generated for Cristian johnson/Quoc/Bgitting on: 0 06/30/2025 08:01 AM EDT
--- OUTSIDE RECORDS SUMMARY | 2025-06-30 08:01 | XMS_ITS | Patient Health Record ---
Author Organization [facility] Address [address] [place] [address] Care Team Providers Care Clinical Marketing Manager Name Role Phone Luis Roth MD Primary Care Provider Alexander Suarez Unavailable [phone] Allergies Allergen (clinical drug ingredient) Drug/Non Drug [...] Treatment Pending Test Test Name Order Date [id number]-Uypq Destruction, 11-2210/20/2011 [id number]-Bdqj Destruction, 11-2212/11/2011 04755-Dkfd Destruction, 11-2209/09/2012 68782-Ejgn Destruction, 11-2205/26/2013 36450-Sxrh Destruction, 11-2203/30/2014 36358-Clmn Destruction, 11-2204/16/2015 01797-Pqjx Destruction, 11-2206/25/2017 60514-Uwzm Destruction, 11-2205/26/2018 Insurance Providers Payer Name Payer Address Payer Phone Subscriber Number Group Number Insured Name Patient Relationship to Insured Coverage Start Date Coverage End Date [facility] [address] [place] [address] [id number] Maddox Self - patient is the insured Medical (General) History Medical History History ICD Code warts mumps measles chicken pox back pain Surgical History Surgery Date(Month/Year) carpal tunnel surgery 1999 foot surgery 1981 endometrial ablation
[2025-08-16 15:47] VITALS: BMI 22.2
--- NOTE | 2025-08-17 09:42 | HO.ANESPROP2 ---
Documented by User: Radha Cheatham NP 08/17/25 09:42 HPI - Anesthesia Eval Consult details Narrative: 70yo F for Colonoscopy PMFSH Active Problems Active Problems: All Active Problems Allergic rhinitis (Acute) Back pain (Acute) History of colon polyps (Acute) Osteoporosis (Acute) OAB (overactive bladder) (Acute) Hyperlipidemia (Acute) Past Medical History Medical History OAB (overactive bladder) Hx of endometriosis Hyperlipidemia Family History Family History Mother No problems noted. Father Alzheimer dementia Paternal Aunt Diabetes Surgical History Surgical History Hx of foot surgery History of carpal tunnel release Hx of unilateral oophorectomy S/P carpal tunnel release History of colonoscopy (~12/05/19) Social History Social History Housing: House Patient Tobacco Use Status: Never used Tobacco e-Cigarette/Vaping Use: Never Used Have you been hit, kicked, punched, or otherwise hurt by someone within the past year? If so, by whom?: No Are you DNR?: No Advance Directives: No Advance Directives Information Provided: Yes service: No Current occupational status: retired Cognitive needs: No Hearing needs: Yes (bilateral ) Vision needs: Yes (rx glasses) Meds Allergies Allergy/AdvReac Type Severity Reaction Status Date / Time amoxicillin (AMOXICILLIN) Allergy Unknown ITCHY Verified 08/18/25 07:36 cefuroxime (From CEFTIN) Allergy Unknown DIARRHEA Verified 08/18/25 07:36 erythromycin base Allergy Unknown UNKNOWN Verified 08/18/25 07:36 (ERYTHROMYCIN BASE) Sulfa (Sulfonamide Allergy Unknown REDNESS Verified 08/18/25 07:36 Antibiotics) (SULFA (SULFONAMIDE ANTIBIOTICS)) doxycycline Allergy Unknown Verified 08/18/25 07:36 mirabegron Allergy Unknown Verified 08/18/25 07:36 Home Medications ?Medication ?Instructions ?Recorded ?Confirmed ?Last Taken ?Type betamethasone dipropionate 0.05 % 1 appl topical DAILY 03/10/25 08/16/25 Unknown History lotion fluticasone propionate 50 spray intranasal 03/10/25 07/21/25 Unknown History mcg/actuation nasal spray,suspension meclizine 12.5 mg tablet 25 mg PO DAILY PRN Dizziness Or 03/10/25 08/16/25 Unknown History Vertigo ascorbate calcium (vitamin C) 500 500 mg PO DAILY 07/21/25 08/16/25 Unknown History mg tablet multivitamin 1 tab PO DAILY 07/21/25 08/16/25 Unknown History acetaminophen 650 mg 1,300 mg PO Q8H 08/16/25 08/16/25 Unknown History tablet,extended release (Tylenol 8 Hour) fluticasone propionate 50 1 inh inhalation BID 08/16/25 08/16/25 Unknown History mcg/actuation blister powder for inhalation inulin 2 gram chewable tablet g PO 08/16/25 Unknown History Exam Height,Weight and Vital Signs: Height 5 ft 1.75 in Weight 54.544 kg Assessment and Plan Assessment Anesthesia Assessment: Chart Reviewed Documented by User: Leopoldo Cintron MD 08/18/25 08:00 [facility] Past Medical History Medical History OAB (overactive bladder) Hx of endometriosis Hyperlipidemia Functional capacity: independent ambulation Family History Family History Mother No problems noted. Father Alzheimer dementia Paternal Aunt Diabetes Family history of problems with anesthesia: No Surgical History Surgical History Hx of foot surgery History of carpal tunnel release Hx of unilateral oophorectomy S/P carpal tunnel release History of colonoscopy (~12/05/19) History of Problems with Anesthesia: No Social History Social History Housing: House Patient Tobacco Use Status: Never used Tobacco e-Cigarette/Vaping Use: Never Used Have you been hit, kicked, punched, or otherwise hurt by someone within the past year? If so, by whom?: No Are you DNR?: No Advance Directives: No Advance Directives Information Provided: Yes service: No Current occupational status: retired Cognitive needs: No Hearing needs: Yes (bilateral ) Vision needs: Yes (rx glasses) Meds Allergies Allergy/AdvReac Type Severity Reaction Status Date / Time amoxicillin (AMOXICILLIN) Allergy Unknown ITCHY Verified 08/18/25 07:36 cefuroxime (From CEFTIN) Allergy Unknown DIARRHEA Verified 08/18/25 07:36 erythromycin base Allergy Unknown UNKNOWN Verified 08/18/25 07:36 (ERYTHROMYCIN BASE) Sulfa (Sulfonamide Allergy Unknown REDNESS Verified 08/18/25 07:36 Antibiotics) (SULFA (SULFONAMIDE ANTIBIOTICS)) doxycycline Allergy Unknown Verified 08/18/25 07:36 mirabegron Allergy Unknown Verified 08/18/25 07:36 Home Medications ?Medication ?Instructions ?Recorded ?Confirmed ?Last Taken ?Type betamethasone dipropionate 0.05 % 1 appl topical DAILY 03/10/25 08/16/25 Unknown History lotion fluticasone propionate 50 spray intranasal 03/10/25 07/21/25 Unknown History mcg/actuation nasal spray,suspension meclizine 12.5 mg tablet 25 mg PO DAILY PRN Dizziness Or 03/10/25 08/16/25 Unknown History Vertigo ascorbate calcium (vitamin C) 500 500 mg PO DAILY 07/21/25 08/16/25 Unknown History mg tablet multivitamin 1 tab PO DAILY 07/21/25 08/16/25 Unknown History acetaminophen 650 mg 1,300 mg PO Q8H 08/16/25 08/16/25 Unknown History tablet,extended release (Tylenol 8 Hour) fluticasone propionate 50 1 inh inhalation BID 08/16/25 08/16/25 Unknown History mcg/actuation blister powder for inhalation inulin 2 gram chewable tablet g PO 08/16/25 Unknown History Exam Exam Date and Time: Airway Mallampati Class: II TM Dist: >3cm Neck ROM: Full Loose/Missing/Broken Teeth: No Heart: normal Lungs: normal Assessment and Plan Assessment Anesthesia Assessment: Anesthesia Plan Discussed Final Anesthetic Review Family History of Problems with Anesthesia: No History of Problems with Anesthesia: No NPO: Yes ASA Class: II Final Preanesthetic Review: No Changes in Pt Med Stat, Meds/Allgs Chart Reviewed, Consent Obtained/Reviewed and Anes Risks/Benef Reviewed Patient Risk: Low Procedure Risk: Low Anesthetic Plan Anesthetic Plan: MAC: Disposition: Standard PACU
[2025-08-18 07:30] VITALS: BMI 21.9
[2025-08-18 07:37] VITALS: BMI 21.9
[2025-08-18 07:48] VITALS: BP 97/71; PULSE 99; RESP 16; TEMP 36.7; O2SAT 99
[2025-08-18] MEDS: Lactated Ringers 1,000 ML 100 ML IVCONT (07:54)
[2025-08-18 09:48] VITALS: BP 120/80; PULSE 70; RESP 16; TEMP 36.3; O2SAT 96
--- NOTE | 2025-08-18 09:52 | P.BOP_ITS ---
Brief Operative Note Date of Service: 08/18/25 Pre-op diagnosis: Screening Post-op diagnosis: other (Diverticulosis) Procedure: Colonoscopy to the cecum and TI Surgeon: Patrice Casas MD Anesthesia: MAC Was an Criminal Attorney used for this Procedure?: No Estimated blood loss (mL): 0 Pathology: none sent Condition: stable Disposition: PACU
[2025-08-18 10:00] VITALS: BP 98/54; PULSE 74; RESP 16; O2SAT 97
[2025-08-18 10:15] VITALS: BP 106/65; PULSE 73; RESP 16; TEMP 36.2; O2SAT 97
--- NOTE | 2025-08-18 10:20 | OP_ITS ---
DATE OF SERVICE: 08/18/2025 SURGEON: Patrice Casas MD INDICATIONS: The patient presents for evaluation of personal history of tubular adenoma of the colon and colorectal cancer screening. Full consent has been obtained from her for this, including risks of bleeding and perforation. PREOPERATIVE DIAGNOSIS: POSTOPERATIVE DIAGNOSIS: PROCEDURE PERFORMED: Colonoscopy to the cecum and terminal ileum. ESTIMATED BLOOD LOSS: COMPLICATIONS: ANESTHESIA: Monitored anesthesia care. ASSISTANTS: SPECIMENS: PREOPERATIVE DIAGNOSES: Colorectal cancer screening and personal history of tubular adenoma of the colon. POSTOPERATIVE DIAGNOSES: Colorectal cancer screening and personal history of tubular adenoma of the colon, diverticulosis and internal hemorrhoids. DESCRIPTION OF PROCEDURE: The patient was placed in the left lateral decubitus position. The digital rectal exam revealed no abnormalities. The Olympus video pediatric colonoscope was entered into the rectum and advanced easily to the cecum. Once in the cecum, I did identify normal-appearing cecal pouch with appendiceal orifice and a normal-appearing ileocecal valve. The terminal ileum was cannulated and appeared normal. Scope was withdrawn back into the colon. The entire cecum and ileocecal valve appeared normal. The scope was slowly withdrawn assessing all mucosal surfaces carefully. Preparation was excellent. I did not visualize any sign of polyps, colitis, nor angiodysplasia. There was a mild amount of sigmoid diverticulosis. In the rectum, scope was retroflexed visualizing internal hemorrhoids, but no other pathology. The rectal mucosa appeared normal. The scope was straightened and withdrawn from the patient. She tolerated the procedure well and was returned to the recovery area in stable condition. IMPRESSION: 1. Diverticulosis. 2. Internal hemorrhoids. PLAN: Given the previous history of tubular adenomas and negative exam today, I would recommend a followup coloscopy in 5 years for further screening. She will otherwise see me on a p.r.n. basis. MD FLAKO Montez/FE / [phone] MAURI
== END 2025-08-18 11:09 | disposition home or self-care (01) ==
PROVIDERS: PCP Internal Medicine; Visit Provider Internal Medicine
PROC: 0DJD8ZZ Inspection of Lower Intestinal Tract, Via Natural or Artificial Opening Endoscopic (ICD-10-PCS; CPT 45378; principal; 2025-08-18 08:30)
DX: Z12.11 Encounter for screening for malignant neoplasm of colon (principal); Z86.0101 Personal history of adenomatous and serrated colon polyps; K57.30 Diverticulosis of large intestine without perforation or abscess without bleeding; K64.8 Other hemorrhoids; N80.9 Endometriosis, unspecified; N32.81 Overactive bladder; Z79.51 Long term (current) use of inhaled steroids; Z79.899 Other long term (current) drug therapy; Z79.1 Long term (current) use of non-steroidal anti-inflammatories (NSAID); Z88.1 Allergy status to other antibiotic agents; Z88.2 Allergy status to sulfonamides; Z98.890 Other specified postprocedural states
CPT/HCPCS: G0105; J2003; J2704; J3010

== ENCOUNTER 2025-10-23 13:28 | Outpatient (REF) | payer MEDICARE, SELFPAY ==
--- OUTSIDE RECORDS SUMMARY | 2024-12-27 04:30 | XMS_ITS ---
Author Organization [facility] Address [address] [place] [address] Care Team Providers Care Heel Shaver Name Role Phone Irish Monterroso M.D. Primary Care Provider Unavail Patrice Wilson [phone] REASON FOR VISIT screening colonoscopy Medications Medication SIG (Take, Route, Frequency, Duration) Notes Start Date End Date Status Calcium 500 MG Tablet 1 tablet with meal s Orally Once a day Active Fiber Adult Gummies 2 GM Tablet Chewable as directed Orally once a day Active Ibuprofen 600 MG Tablet 1 tablet with fo od or milk as needed Orally prn Active Multi Vitamin/Minerals - Tablet as directed Orally once a day Active Meclizine HCl 12.5 MG Tablet 2 tablets as needed Orally Once a day Active oxyBUTYnin Chloride 5 MG Tablet 1 tablet Orally Twice a day; Duration: 30 day(s) Active Encounters Encounter Location Date Provider Diagnosis [facility] [address] [place] [address] 12/27/2024 Patrice Casas Plan Of Treatment No Information Progress Notes * MICHELLE ROMAN MDOB:[birth year] (70 yo F)Acc No.[id number]:12/27/2024 Progress Notes Patient: Wendy HAWLEY MICHELLE Ellis Provider: Emmy Casas MD :1955 A ge:69 Y S ex:Female Date:12/27/2024 Address:[address] [place], [place] [id number] Pcp:Irish Monterroso M.D. Subjective: * Chief Complaints: * S creening colonoscopy * Medications: T akingoxyBUTYnin Chloride 5 MG Tablet 1 tablet Orally Twice a day Meclizine HCl 12.5 MG Tablet 2 tablets as needed Orally Once a day Ibuprofen 600 MG Tablet 1 tablet with food or milk as needed Orally prn Multi Vitamin/Minerals - Tablet as directed Orally once a day Calcium 500 MG Tablet 1 tablet with meals Orally Once a day Fiber Adult Gummies 2 GM Tablet Chewable as directed Orally once a day Taking oxyBUTYnin Chloride 5 MG Tablet 1 tablet Orally Twice a day Taking Meclizine HCl 12.5 MG Tablet 2 tablets as needed Orally Once a day Taking Ibuprofen 600 MG Tablet 1 tablet with food or milk as needed Orally prn Taking Multi Vitamin/Minerals - Tablet as directed Orally once a day Taking Calcium 500 MG Tablet 1 tablet with meals Orally Once a day Taking Fiber Adult Gummies 2 GM Tablet Chewable as directed Orally once a day Billing Information: * Procedure Codes: * The named appointment provid er may or may not be the originator of this progress note, and it is not deemed complete until electronically signed by the appointment provider. Sign off status: Pending * Provider: Emmy Casas MD Date: 0 12/27/2024 Generated for Cristian johnson/Quoc/Whitney on: 12/24/2024 07:37 PM EST
--- OUTSIDE RECORDS SUMMARY | 2025-08-18 03:30 | XMS_ITS ---
Author Organization [facility] Address [address] [place] [address] Care Team Providers Care Yarn Wrapper Name Role Phone Irish Monterroso M.D. Primary Care Provider Patrice Monet [phone] REASON FOR VISIT screening, hx adenomatous polyp of colon Encounters Encounter Location Date Provider Diagnosis [facility] [address] [place] [phone] 08/18/2025 Patrice Casas Plan Of Treatment No Information Progress Notes * MICHELLE ROMAN MDOB:[birth year] (70 yo F)Acc No.[id number]:08/18/2025 COLON WITH MAC Patient: MICHELLE REEDER Provider: Emmy Casas MD :[id number] A ge:70 Y S ex:Female Date:08/18/2025 Address:[address] [place], [place] [id number] Pcp:Irish Monterroso M.D. Subjective: * Chief Complaints: * S creening, hx adenomatous polyp of colon Billing Information: * Procedure Codes: * The named appointment provid er may or may not be the originator of this progress note, and it is not deemed complete until electronically signed by the appointment provider. Sign off status: Pending * Provider: Emmy Casas MD Date: Generated for Brandyni ng/Fanovag/eTransmitting on: 12/24/2024 07:37 PM EST
--- NOTE | ~2025-10-23 | MM_ITS ---
EXAMINATION: MM SCREENING DIGITAL BREAST TOMOSYNTHESIS, BILATERAL CLINICAL INFORMATION: Screening. Asymptomatic. COMPARISON: Mammography: Comparison is made with available priors TECHNIQUE: Digital breast mammography with tomosynthesis is performed in both the craniocaudal and mediolateral oblique views along with computer-aided detection (CAD). FINDINGS: The breasts are heterogeneously dense, which may obscure small masses. There are no significant masses, abnormal calcifications, or other abnormalities. MM/MM tomosynthesis screening BI IMPRESSION: No mammographic evidence of malignancy. ASSESSMENT: BI-RADS Category 1: Negative RECOMMENDATION: Routine annual mammography screening. 1 year F/U This examination should not preclude the clinical evaluation of a suspicious palpable abnormality. This patient's information was entered into a reminder system with a target due date for their next mammogram. Electronically signed by: Bonnie Puckett DO 10/25/2025 02:33 PM [facility]
--- OUTSIDE RECORDS SUMMARY | 2025-10-23 19:37 | XMS_ITS | Patient Health Record ---
Author Organization [facility] Address [address] [place] [address] Care Team Providers Care Rehab Aide Name Role Phone Luis Roth MD Primary Care Provider Unavaila Alexander Perez Unavailable [phone] Allergies Allergen (clinical drug ingredient) Drug/Non Drug [...] Treatment Pending Test Test Name Order Date [id number] Destruction, 11-2210/20/2011 [id number] Destruction, 11-2212/11/2011 [id number]-Maml Destruction, 11-2209/09/2012 49531-Iwrb Destruction, 11-2205/26/2013 12638-Lmtd Destruction, 11-2203/30/2014 [id number]-Mgfl Destruction, 11-2204/16/2015 [id number]-Htyq Destruction, 11-2206/25/2017 [id number]-Wwha Destruction, 11-2205/26/2018 Insurance Providers Payer Name Payer Address Payer Phone Subscriber Number Group Number Insured Name Patient Relationship to Insured Coverage Start Date Coverage End Date [facility] [address] [place] [address] [id number] Jam[address] tavera Diane Self - patient is the insured Medical (General) History Medical History History ICD Code warts mumps measles chicken pox back pain Surgical History Surgery Date(Month/Year) carpal tunnel surgery 1999 foot surgery 1981 endometrial ablation
--- OUTSIDE RECORDS SUMMARY | 2025-10-23 19:38 | XMS_ITS | Patient Health Record ---
Author Organization [facility] Address [address] [place] [address] Care Team Providers Care Diesel Scoop Operator Name Role Phone Irish Monterroso M.D. Primary Care Provider Unavail able Casas Patrice Unavailable [phone] Allergies Allergen (clinical drug ingredient) Drug/Non Drug Allergy documented on EMR Reaction Allergy Type Onset Date Status Substance with sulfonamide structure and antibacterial mechanism of action (substance) sulpha (uncoded) Unknown Allergy Active amoxicillin Amoxicillin Unknown Drug Allergy Act raz Ceftin Unknown Drug Allergy Active erythromycin Erythromycin Unknown Drug Allergy A ctive mirabegron Mirabegron Unknown Drug Allergy Activ e doxycycline Doxycycline Unknown Drug Allergy Act raz Reason For Referral No Information Medications Medication SIG (Take, Route, Frequency, Duration) Notes Start Date End Date Status Calcium 500 MG Tablet 1 tablet with meal s Orally Once a day Unknown Multi Vitamin/Minerals - Tablet as directed Orally once a day Unknown Fluticasone Propionate (Inhal) 50 MCG/ACT Aerosol Powder Breath Activated 1 puff Inhalation Twice a day 05/03/2025 Active Fiber Adult Gummies 2 GM Tablet Chewable as directed Orally once a day Unknown Meclizine HCl 12.5 MG Tablet 2 tablets as needed Orally Once a day Unknown Ondansetron 4 MG Tablet Disintegrating 1 tablet on the tongue and allow to dissolve Orally Every 6 hours for nausea during the colonoscopy prep. You can take it shortly before the prep and again 6 hours later to try to prevent nausea as well.; Duration: 1 days 05/03/2025 Active oxyBUTYnin Chloride 5 MG Tablet 1 tablet Orally Twice a day; Duration: 30 day(s) Unknown Ibuprofen 600 MG Tablet 1 tablet with fo od or milk as needed Orally prn Unknown Montelukast Sodium 10 MG Tablet 1 tablet Orally Once a day; Duration: 30 day(s) 05/03/2025 Active Betameth Diprop Aug & Silver 05/03/2025 Active Tylenol 8 Hour 650 MG Tablet Extended Release 2 tablets as needed Orally every 8 hrs as needed Active Immunizations Vaccine Route Administration Date Status Comme nts Influenza Unknown 08/19/2019 Administered Influenza Unknown 08/30/2024 Administered Social History Tobacco Use: Social History Observation Description Date Details (start date - stop date) Never Smoker NA - NA Social History Drugs/Alcohol: Social Info Question Answer Notes Alcohol Screen Did you have a drink containing alcohol in the past year? 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 [employer] Notes: Nonsmoker; no alcohol Nonsmoker; no alcohol Problems Problem Type SNOMED Code ICD Code Onset Dates Problem Status W/U Status Risk Notes Problem Colon cancer screening (779910400) Colon cancer screening (Z12.11) Active confirmed Problem Screening for malignant neoplasm of colon (552983577) Encounter for screening for malignant neoplasm of colon (Z12.11) Active confirmed Problem Nausea (589078323) Nausea (R11.0) Active confirmed Problem Preprocedural examination (980481951128041) Preprocedural examination (Z01.818) Active confirmed Problem History of adenomatous polyp of colon (791270004) History of adenomatous polyp of colon (Z86.0101) Active confirmed Vital Signs Temperature 97.5 degrees Fahrenheit 05/03/2025 Blood pressure diastolic 01 mm Hg 05/03/2025 Height 61.75 in 05/03/2025 Blood pressure systolic 001 mm Hg 05/03/2025 Weight 120.4 lbs 05/03/2025 BMI 22.2 kg/m2 05/03/2025 Procedures Procedure Date Ordered Date Performed Result Body Sit e COLONOSCOPY 05/03/2025 N/A Encounters Encounter Location Date Provider Diagnosis [facility] [address] [place], [place] [phone] 08/18/2025 Patrice Casas [facility] [address] [place] [address] 05/03/2025 Patrice Casas History of adenomato us polyp of colon Z86.0101 ; Preprocedural examination Z01.818 ; Colon cancer screening Z12.11 and Nausea R11.0 [facility] [address] [place] [address] 12/27/2024 Patrice Casas [facility] [address] [place] [address] 05/03/2025 Patrice Casas [facility] [address] [place] [address] 08/18/2025 Patrice Casas Assessments Encounter Date Diagnosis (ICD [...] Test Test Name Order Date COLONOSCOPY 08/19/2019 Insurance Providers Payer Name Payer Address Payer Phone Subscriber Number Group Number Insured Name Patient Relationship to Insured Coverage Start Date Coverage End Date [facility] [address] [place] [phone] [id number] FRANCIE WILCOX DIANE Self - patient is the insured 4 Medical (General) History Medical History History ICD Code Endometriosis Denies [place],DM,CVA,Lung disease,renal dise ase Neg. colonoscopy in 12/2006 Overactive bladder Screening colonoscopy in November [facility] 2 small tubular adenomas removed Surgical History Surgery Date(Month/Year) Endometriosis surgery with removal of on e Fallopian tube and ovary Carpal tunnel release bilaterally Right foot surgery
== END 2025-10-23 13:29 | disposition home or self-care (01) ==
LOC: HO.MAMMO 13:28
PROVIDERS: PCP Physician Assistant; Visit Provider Physician Assistant
DX: Z12.31 Encounter for screening mammogram for malignant neoplasm of breast (principal)
CPT/HCPCS: 77063; 77067

== ENCOUNTER → 2025-10-23 14:00 | Outpatient (BNV) | payer MEDICARE, SELFPAY | PROVIDERS: PCP Physician Assistant; Visit Provider Internal Medicine | DX: Z12.31 Encounter for screening mammogram for malignant neoplasm of breast (principal) | CPT/HCPCS: 77063; 77067 ==